=== PATIENT | female | born 1935 | race Caucasian/White ===

== ENCOUNTER 2016-11-27 17:19 | Inpatient (IN) | payer MEDICARE, OTHER ==
[2016-11-27] MEDS ORDERED: SODIUM CHLORIDE 0.9% 500 ML IV STA (17:51)
[2016-11-27] MEDS ORDERED: SODIUM CHLORIDE 0.9% 1,000 ML IV STA (17:51)
[2016-11-27] MEDS ORDERED: PIPERACILLIN-TAZOBACTAM 3.375 GM in DEXTROSE/WATER 1 50ML.BAG IVPB STA (17:51)
[2016-11-27] MEDS ORDERED: ACETAMINOPHEN TAB 500 MG TAB PO STA (17:51)
--- NOTE | 2016-11-27 18:02 | ED ---
Fever HPI - General Chief Complaint: Fever Stated Complaint: fever/poss sepsis Time Seen by Provider: 11/27/16 17:38 Source: patient, EMS Mode of arrival: EMS - History of Present Illness Initial Comments: She came from [facility], she has a chronic wound on her left proximal [facility] staff noticed that her temperature was quite high was 103 and heart rate was quite high as 120. Eyes any manner headache no neck stiffness no chest pain or shortness of breath no abdominal pain no frequency urgency dysuria. All review of system is negative except the above - Related Data Home Medications Medication Instructions Recorded Confirmed Aspirin EC [Ecotrin Low Dose] 81 mg PO DAILY 09/17/16 11/27/16 Multivitamins, Thera [Multivitamin] 1 tab PO DAILY 09/17/16 11/27/16 Acetaminophen Tab [Tylenol] 500 mg PO Q6HR PRN 09/23/16 11/27/16 Ascorbic Acid [Vitamin C] 1,000 mg PO DAILY 09/23/16 11/27/16 metFORMIN HCL [Glucophage] 1,000 mg PO AC-BID 09/23/16 11/27/16 Loperamide [Imodium] 2 mg PO TID PRN 10/22/16 11/27/16 Repaglinide [Prandin] 1 mg PO AC-TID 10/22/16 11/27/16 Sulfamethox-Tmp 800-160Mg [Bactrim 1 tab PO Q12HR 10/22/16 11/27/16 DS 800-160 mg] Amino Acids/Protein Hydrolys 30 ml PO BID 11/11/16 11/27/16 [Pro-Stat Supplement] Furosemide [Lasix] 40 mg PO MOWEFR 11/27/16 11/27/16 Glucerna Shake 1 can PO TID 11/27/16 11/27/16 Metoprolol Tartrate [Lopressor] 12.5 mg PO BID 11/27/16 11/27/16 Previous Rx's Medication Instructions Recorded Famotidine [Pepcid] 20 mg PO BID tab 09/20/16 Insulin Glargine [Lantus] 10 unit SQ HS vial 09/26/16 Linagliptin [Tradjenta] 5 mg PO DAILY tablet 09/26/16 Lisinopril [Zestril] 2.5 mg PO DAILY@1300 tab 09/26/16 Potassium Chloride 8 meq PO MOWEFR #1 tablet.er 09/26/16 Allergies Allergy/AdvReac Type Severity Reaction Status Date / Time caffeine AdvReac Unknown Verified 11/27/16 18:52 Review of Systems ROS Statement: Those systems with pertinent positive or pertinent negative responses have been documented in the HPI. ROS Other: All systems not noted in ROS Statement are negative. Past Medical History Past Medical History: Heart Failure, Diabetes Mellitus, Hypertension, Osteoarthritis (OA) Additional Past Medical History / Comment(s): Pt stating, "No" to all when asked. but does have sinus/allergies, balance problems/admitted to multiple falls, poor vision stated needs new glasses they don't work anymore. uses a magnifying glass. Hay fever, lactose intolerance. IBS. Newly diagnosed diabetes 09/24,UTI, IDC,gastroenteritis,colitis,Nurse Shayla at [facility] pa A&O X3 , able to sign for self, is a 1 person asst transfer. History of Any Multi-Drug Resistant Organisms: MRSA Date of last positivie culture/infection: 08-17-16 MDRO Source:: buttock abscess Past Surgical History: Tonsillectomy Additional Past Surgical History / Comment(s): d&c 40 years ago Past Anesthesia/Blood Transfusion Reactions: Unable to Obtain Additional Past Anesthesia/Blood Transfusion Reaction / Comment(s): past blood transfuion after 1st child born. Past Psychological History: No Psychological Hx Reported Additional Psychological History / Comment(s): pt knew the year and month but 2 times during admission pt had to be reorientated as to place. pt stated she lives at [facility],uses a cane when up Smoking Status: Former smoker Past Alcohol Use History: None Reported Past Drug Use History: None Reported - Past Family History Mother Family Medical History: No Reported History Father Additional Family Medical History / Comment(s): heart problems, triple bypass. General Exam - General Exam Comments Initial Comments: General: The patient is awake and alert, moderate distress, looks pale, weak Skin: Skin is warm and dry and no rashes or lesions are noted. Notice a chronic wound on the left buttocks Eye: Pupils are equal, round and reactive to light, extra-ocular movements are intact; there is normal conjunctiva bilaterally. Ears, nose, mouth and throat: There are moist mucous membranes and no oral lesions. Neck: The neck is supple, there is no tenderness or JVD. Cardiovascular: There is a regular rate , she is tachycardic. Respiratory: To auscultation bilateral, crackles at the the bases Gastrointestinal: Soft, non-distended, non-tender abdomen without masses or organomegaly noted. There is no rebound or guarding present. Bowel sounds are unremarkable. Back: There is no tenderness to palpation in the midline. There is no obvious deformity. Musculoskeletal: Normal ROM, no tenderness, There is no pedal edema. There is no calf tenderness or swelling. No cords were appreciated. Neurological: CN II-XII intact, Cranial nerves III through XII are intact. There are no obvious motor or sensory deficits. Coordination appears grossly intact. Speech is normal. Psychiatric: Cooperative, bit agitated, angry no suicidal or homicidal ideation. Course Vital Signs 11/27/16 11/27/16 11/27/16 17:32 18:32 19:14 Temperature 103.1 F H 99.6 F Pulse Rate 120 H 111 H 109 H Respiratory 18 18 18 Rate Blood Pressure 141/72 123/60 99/62 O2 Sat by Pulse 94 L 92 L 94 L Oximetry 11/27/16 20:58 Temperature 99.0 F Pulse Rate 105 H Respiratory 18 Rate Blood Pressure 106/67 O2 Sat by Pulse 95 Oximetry G is sinus tachycardia with a ventricular rate of 118 MS interval is 136 QRS duration is 86 4 QT/QTc is 324/454 review of this EKG does not reveal any ST elevation or ST depression Medical Decision Making - Lab Data Result diagrams: 11/27/16 18:15 11/27/16 18:15 Lab Results 11/27/16 11/27/16 11/27/16 Range/Units 18:15 18:15 18:15 WBC 22.9 H (3.8-10.6) k/uL RBC 3.55 L (3.80-5.40) m/uL Hgb 11.6 (11.4-16.0) gm/dL Hct 34.7 (34.0-46.0) % MCV 97.7 (80.0-100.0) fL MCH 32.6 (25.0-35.0) pg MCHC 33.3 (31.0-37.0) g/dL RDW 14.9 (11.5-15.5) % Plt Count 336 (150-450) k/uL Neutrophils % 90 % Lymphocytes % 5 % Monocytes % 3 % Eosinophils % 1 % Basophils % 0 % Neutrophils # 20.7 H (1.3-7.7) k/uL Lymphocytes # 1.1 (1.0-4.8) k/uL Monocytes # 0.8 (0-1.0) k/uL Eosinophils # 0.1 (0-0.7) k/uL Basophils # 0.0 (0-0.2) k/uL Sodium 132 L (137-145) mmol/L Potassium 4.1 (3.5-5.1) mmol/L Chloride 92 L (98-107) mmol/L Carbon Dioxide 29 (22-30) mmol/L Anion Gap 11 mmol/L BUN 15 (7-17) mg/dL Creatinine 0.43 L (0.52-1.04) mg/dL Est GFR (MDRD) Af Amer >60 (>60 ml/min/1.73 sqM) Est GFR (MDRD) Non-Af >60 (>60 ml/min/1.73 sqM) Glucose 229 H (74-99) mg/dL Plasma Lactic Acid Varun 1.2 (0.7-2.0) mmol/L Calcium 8.9 (8.4-10.2) mg/dL Total Bilirubin 1.0 (0.2-1.3) mg/dL AST 24 (14-36) U/L ALT 32 (9-52) U/L Alkaline Phosphatase 252 H (38-126) U/L Total Protein 6.2 L (6.3-8.2) g/dL Albumin 3.0 L (3.5-5.0) g/dL Urine Color Urine Appearance (Clear) Urine pH (5.0-8.0) Ur Specific [place] (1.001-1.035) Urine Protein (Negative) Urine Glucose (UA) (Negative) Urine Ketones (Negative) Urine Blood (Negative) Urine Nitrate (Negative) Urine Bilirubin (Negative) Urine Urobilinogen (<2.0) mg/dL Ur Leukocyte Esterase (Negative) Urine RBC (0-5) /hpf Urine WBC (0-5) /hpf Urine WBC Clumps (None) /hpf Urine Bacteria (None) /hpf Urine Mucus (None) /hpf 12/28/16 Range/Units 18:15 WBC (3.8-10.6) k/uL RBC (3.80-5.40) m/uL Hgb (11.4-16.0) gm/dL Hct (34.0-46.0) % MCV (80.0-100.0) fL MCH (25.0-35.0) pg MCHC (31.0-37.0) g/dL RDW (11.5-15.5) % Plt Count (150-450) k/uL Neutrophils % % Lymphocytes % % Monocytes % % Eosinophils % % Basophils % % Neutrophils # (1.3-7.7) k/uL Lymphocytes # (1.0-4.8) k/uL Monocytes # (0-1.0) k/uL Eosinophils # (0-0.7) k/uL Basophils # (0-0.2) k/uL Sodium (137-145) mmol/L Potassium (3.5-5.1) mmol/L Chloride (98-107) mmol/L Carbon Dioxide (22-30) mmol/L Anion Gap mmol/L BUN (7-17) mg/dL Creatinine (0.52-1.04) mg/dL Est GFR (MDRD) Af Amer (>60 ml/min/1.73 sqM) Est GFR (MDRD) Non-Af (>60 ml/min/1.73 sqM) Glucose (74-99) mg/dL Plasma Lactic Acid Varun (0.7-2.0) mmol/L Calcium (8.4-10.2) mg/dL Total Bilirubin (0.2-1.3) mg/dL AST (14-36) U/L ALT (9-52) U/L Alkaline Phosphatase (38-126) U/L Total Protein (6.3-8.2) g/dL Albumin (3.5-5.0) g/dL Urine Color Yellow Urine Appearance Turbid H (Clear) Urine pH 5.5 (5.0-8.0) Ur Specific [place] 1.017 (1.001-1.035) Urine Protein 1+ H (Negative) Urine Glucose (UA) Negative (Negative) Urine Ketones 2+ H (Negative) Urine Blood Trace H (Negative) Urine Nitrate Positive H (Negative) Urine Bilirubin Negative (Negative) Urine Urobilinogen 3.0 (<2.0) mg/dL Ur Leukocyte Esterase Large H (Negative) Urine RBC 51 H (0-5) /hpf Urine WBC >182 H (0-5) /hpf Urine WBC Clumps Many H (None) /hpf Urine Bacteria Many H (None) /hpf Urine Mucus Many H (None) /hpf Critical Care Time Total Critical Care Time: 35 Critical Care Time: She was quite sick when she came in her temperature was 103 and heart rate was 120 blood pressure was 141/88 she was quite agitated she didn't want us to do any IV was though it took us quite some time to convince her that she needs IV fluids IV antibiotics and close monitoring and she was and then some fluid resuscitation and then now is Zosyn IV was giving him some fluids finally her heart rate settled down and a temperature got better she be admitted to hospitalist services under Dr. Villagomez and Dr. Quiñonez infectious disease doctor. Consult Disposition Clinical Impression: Fever, Sepsis, Tachycardia, Cystitis Disposition: ADMITTED IP TO THIS HOSP Condition: Fair
[2016-11-27 18:37] LABS: Appearance,Urine Turbid (Clear); Bacteria,Urine Many /hpf; Bilirubin,Urine Negative (Negative); Glucose,Urine (UA) Negative (Negative); Ketones,Urine 2+ (Negative); Leukocyte Esterase,Urine Large (Negative); Mucus,Urine Many /hpf; Nitrite,Urine Positive (Negative); PH, Urine 5.5 (5.0-8.0); Particle Count 369587; Protein,Urine 1+ (Negative); RBC,Urine 51 /hpf (0-5); Specific Gravity,Urine 1.017 (1.001-1.035); UA Billing (MACRO vs. MICRO) MICRO; WBC,Urine >182 /hpf (0-5)
[2016-11-27 18:41] LABS: ALT 32 U/L (9-52); AST 24 U/L (14-36); Alkaline Phosphatase 252 U/L (38-126); Anion Gap 11 mmol/L; Basophils % (A) 0 %; Blood Urea Nitrogen 15 mg/dL (7-17); CH 33.7; CHCM 34.6; Calcium 8.9 mg/dL (8.4-10.2); Carbon Dioxide 29 mmol/L (22-30); Chloride 92 mmol/L (98-107); Eosinophils # (A) 0.1 k/uL (0-0.7); Eosinophils % (A) 1 %; Glucose 229 mg/dL (74-99); HCT 34.7 % (34.0-46.0); HDW 2.45; HGB 11.6 gm/dL (11.4-16.0); Luc # (Auto) 0.16; Luc % (Auto) 1; Lymphocytes # (A) 1.1 k/uL (1.0-4.8); Lymphocytes % (A) 5 %; MCH 32.6 pg (25.0-35.0); MCHC 33.3 g/dL (31.0-37.0); MCV 97.7 fL (80.0-100.0); Mean Platelet Volume 7.6; Monocytes # (A) 0.8 k/uL (0-1.0); Monocytes % (A) 3 %; Neutrophils # (A) 20.7 k/uL (1.3-7.7); Neutrophils % (A) 90 %; Non-African American GFR(MDRD) >60 (>60 ml/min/1.73 sqM); Potassium 4.1 mmol/L (3.5-5.1); RBC 3.55 m/uL (3.80-5.40); RDW 14.9 % (11.5-15.5); Sodium 132 mmol/L (137-145); Total Protein 6.2 g/dL (6.3-8.2); WBC 22.9 k/uL (3.8-10.6); WBC (Perox) 24.43
--- NOTE | 2016-11-27 19:05 | XR ---
EXAMINATION TYPE: XR Hip Bilateral and AP pelvis DATE OF EXAM: 11/27/2016 6:52 PM COMPARISON: NONE HISTORY: Pain TECHNIQUE: 5 views FINDINGS: The pelvic ring is intact. The proximal femurs and hip joints are intact. Sacroiliac joints are normal. There is osteopenia.. IMPRESSION: Negative pelvis and bilateral hip exam. No fracture seen. Osteopenia.
--- NOTE | 2016-11-27 19:06 | XR ---
EXAMINATION TYPE: XR chest 2V DATE OF EXAM: 11/27/2016 6:53 PM COMPARISON: 09/26/2016 HISTORY: Fever TECHNIQUE: Frontal and lateral views of the chest are obtained. FINDINGS: There is no heart failure nor confluent pneumonic infiltrate. Thoracic aorta is atheroscle rotic and tortuous. There is no pleural effusion. There are chest leads. Bony thorax appears intact. IMPRESSION: No active cardiopulmonary disease. Cardiomegaly. There is clearing of the pleural fluid and probable congestive heart failure compared to last exam.
[2016-11-27] MEDS ORDERED: ONDANSETRON 4 MG/2 ML VIAL IVP PRN (22:47)
[2016-11-27] MEDS ORDERED: NALOXONE 0.4 MG/ML 1 ML VIAL IV PRN (22:47)
[2016-11-27 23:57] VITALS: BMI 21.2
[2016-11-28] MEDS: PIPERACILLIN-TAZOBACTAM 3.375 GM in DEXTROSE/WATER 1 50ML.BAG IVPB SCH ×4 (01:49→22:58)
[2016-11-28] MEDS: FUROSEMIDE 40 MG TAB PO SCH (02:19)
[2016-11-28 07:05] LABS: Glucose,Whole Blood 167 mg/dL (75-99)
[2016-11-28 07:29] LABS: Basophils % (A) 0 %; CH 33.5; CHCM 33.8; Eosinophils % (A) 0 %; HCT 31.5 % (34.0-46.0); HDW 2.46; HGB 10.5 gm/dL (11.4-16.0); Luc # (Auto) 0.29; Luc % (Auto) 2; Lymphocytes # (A) 1.4 k/uL (1.0-4.8); Lymphocytes % (A) 8 %; MCH 33.3 pg (25.0-35.0); MCHC 33.5 g/dL (31.0-37.0); MCV 99.4 fL (80.0-100.0); Macrocytosis Slight; Mean Platelet Volume 7.1; Monocytes # (A) 0.8 k/uL (0-1.0); Monocytes % (A) 4 %; Neutrophils % (A) 86 %; RBC 3.17 m/uL (3.80-5.40); WBC 18.6 k/uL (3.8-10.6); WBC (Perox) 19.62
[2016-11-28 07:42] LABS: ALT 34 U/L (9-52); AST 18 U/L (14-36); Alkaline Phosphatase 209 U/L (38-126); Anion Gap 11 mmol/L; Blood Urea Nitrogen 13 mg/dL (7-17); Calcium 8.5 mg/dL (8.4-10.2); Carbon Dioxide 30 mmol/L (22-30); Chloride 95 mmol/L (98-107); Glucose 178 mg/dL (74-99); Non-African American GFR(MDRD) >60 (>60 ml/min/1.73 sqM); Potassium 3.6 mmol/L (3.5-5.1); Sodium 136 mmol/L (137-145); Total Bilirubin 0.8 mg/dL (0.2-1.3); Total Protein 5.6 g/dL (6.3-8.2)
[2016-11-28] MEDS: metFORMIN 500 MG TAB PO SCH ×2 (07:43→17:26)
[2016-11-28] MEDS: REPAGLINIDE 1 MG TAB PO SCH ×3 (07:43→17:26)
[2016-11-28] MEDS: ASPIRIN 81 MG CHEW PO SCH (07:44)
[2016-11-28] MEDS: LINAGLIPTIN 5 MG TABLET PO SCH (07:44)
[2016-11-28] MEDS: FAMOTIDINE 20 MG TAB PO SCH ×2 (07:44→22:03)
[2016-11-28] MEDS: ASCORBIC ACID 500 MG TAB PO SCH (07:44)
[2016-11-28] MEDS: MULTIVITAMINS, THERA 1 EACH TAB PO SCH (07:45)
[2016-11-28] MEDS: METOPROLOL TARTRATE 12.5 MG TAB PO SCH ×2 (07:45→22:03)
[2016-11-28] MEDS ORDERED: SULFAMETHOX-TMP 800-160MG 1 EACH TAB PO SCH (09:00)
[2016-11-28] MEDS ORDERED: NON-FORMULARY DRUG (Glucerna Shake 1 CAN) PO SCH (09:00)
[2016-11-28] MEDS ORDERED: NON-FORMULARY DRUG (Amino Acids/Protein Hydrolys [Pro-Stat Supplement] 30 ML) PO SCH (09:00)
[2016-11-28] MEDS: ACETAMINOPHEN TAB 325 MG TAB PO PRN ×2 (09:13→16:08)
[2016-11-28 11:55] LABS: Glucose,Whole Blood 153 mg/dL (75-99)
[2016-11-28] MEDS: INSULIN LISPRO (humaLOG) 300 UNIT/3 ML VIAL SQ SCH ×4 (12:14→21:57)
[2016-11-28] MEDS: LISINOPRIL 2.5 MG TAB PO SCH (12:15)
[2016-11-28] MEDS ORDERED: IV VANCOMYCIN PER PHARMACY 1 EACH MISC MISCELLANE PRN (12:27)
[2016-11-28] MEDS ORDERED: VANCOMYCIN 1,000 MG in SODIUM CHLORIDE 0.9% 250 ML IVPB ONE (13:30)
[2016-11-28] MEDS: LOPERAMIDE 2 MG CAP PO PRN (16:00)
[2016-11-28 17:17] LABS: Glucose,Whole Blood 189 mg/dL (75-99)
[2016-11-28 20:24] LABS: Glucose,Whole Blood 122 mg/dL (75-99)
[2016-11-28] MEDS: INSULIN GLARGINE 100 UNIT/ML 10 ML VIAL SQ SCH (22:06)
[2016-11-29] MEDS: VANCOMYCIN 1,000 MG in SODIUM CHLORIDE 0.9% 250 ML IVPB SCH ×2 (02:53→15:53)
--- NOTE | 2016-11-29 06:25 | HP ---
DATE OF ADMISSION: The patient is a long term resident and patient has a chronic wound. The patient has congestive heart failure, ejection fraction of around 40% to 45%. Came in because of high-grade fevers and heart rate at 120. Chest x-ray did not show any pneumonic process or any fluid n the lungs. The patient during her last hospitalization was discharged on Bactrim. The patient has Proteus mirabilis and Enterococcus in the wound, but patient has ( ). The source of infection is unclear at this point of time. Patient has a chronic Orellana catheter. Urine appear to be ( ). The source of infections being urine versus wound. The patient has a deep wound for which Dr. Quiñonez evaluated at that time. We consulted Dr. Quiñonez. I will go ahead and discontinue Bactrim and patient will be started on IV vancomycin. Patient denied any cough, runny nose. Patient was febrile with temperature going up to 103. REVIEW OF SYSTEMS: GENERAL: As described in HPI. HEENT: No recent visual problems or hearing problems. Denied any sore throat. CARDIOVASCULAR: No chest pain, orthopnea, PND, no palpitations, no syncope. PULMONARY: No shortness of breath, no cough, no hemoptysis. GASTROINTESTINAL: No diarrhea, no nausea, no vomiting, no abdominal pain. Normoactive bowel sounds. NEUROLOGICAL: No headaches, no weakness, no numbness. HEMATOLOGICAL: Denies any bleeding or petechiae. GENITOURINARY: Denies any burning micturition, frequency, or urgency. MUSCULOSKELETAL/RHEUMATOLOGICAL: Denies any joint pain, swelling, or any muscle pain. ENDOCRINE: Denies any polyuria or polydipsia. The rest of the 14 point review of systems is negative. Home medications include: 1. Aspirin. 2. Multivitamin. 3. Acetaminophen. 4. Ascorbic acid. 5. Metformin. 6. Loperamide. 7. ( ). 8. Bactrim. 9. Lasix 40 mg oral daily. 10. Glucerna. 11. Metoprolol. Patient during her last hospitalization was treated for ( ) exacerbation ( ) gradually ( ) lisinopril and potassium chloride. Allergies are to CAFFEINE. PAST MEDICAL HISTORY: Significant for congestive heart failure, chronic systolic dysfunction ejection fraction of around 40% to 45%, type 2 diabetes mellitus, hypertension, osteoarthritis, buttock abscess and SOCIAL HISTORY: Former smoker. Denied any alcohol abuse or any drug abuse. FAMILY HISTORY: Father had heart problems and triple bypass surgery. PHYSICAL EXAMINATION: VITAL SIGNS: Temperature 98.6, pulse of 90, respiratory rate of 16, blood pressure 97/62, saturating at 93% on 2 L of O2 by nasal cannula, 24 hour T-max is 103.1. Patient's tachycardia did improve at this point of time. GENERAL: Thin built, cachetic, malnourished, probably moderate malnourishment in patient. HEENT: Pupils are round and equally reacting to light. EOMI. No scleral icterus. No conjunctival pallor. Normocephalic, atraumatic. No pharyngeal erythema. No thyromegaly. CARDIOVASCULAR: S1 and S2 present. No murmurs, rubs, or gallops. PULMONARY: Chest is clear to auscultation, no wheezing or crackles. ABDOMEN: Soft, nontender, nondistended, normoactive bowel sounds. No palpable organomegaly. MUSCULOSKELETAL: No joint swelling or deformity. EXTREMITIES: No cyanosis, clubbing, or pedal edema. NEUROLOGICAL: Gross neurological examination did not reveal any focal deficits. SKIN: No rashes. DERMATOLOGIC: Patient has a decubitus ulcer, which is pretty deep and has a wound VAC, because of which I am not able to open it up and look at the wound. Wound cultures will be obtained at this point of time. Patient has a chronic Orellana catheter, which will be replaced. LABORATORY DATA: CBC, CMP are abnormal for elevated WBC count of 22,900 which has come down to 18,600. Sodium was 132, has come up to 136 after IV fluids, but I will discontinue the IV fluids with concerns of CHF exacerbation. Alkaline phosphatase is 209, which is a nonspecific elevation. UA definitely looks bad with positive nitrites, large leukocyte esterase, greater than 182 WBC. Chest x-ray and pelvic x-ray were reviewed, except for osteopenia no other acute problems in the pelvic or chest x-ray. ASSESSMENT AND PLAN: 1. Severe sepsis secondary to either deep wound or urinary tract infection, which is again secondary to probably Orellana catheter-related. Patient is on broad-spectrum antibiotic as mentioned above. IV fluids will be discontinued because of above mentioned reasons of congestive heart failure, 2. Congestive heart failure, not in acute exacerbation. The patient is actually hypovolemic, received one night of IV fluids after which this will be discontinued. 3. Diabetes mellitus. Patient will be on sliding scale insulin. Hold up on oral hypoglycemic agents. 4. Moderate malnourishment. 5. Poor functionality. 6. Irritable bowel syndrome. 7. Osteoarthritis. Patient's primary care physician is Dr. Darrel Gaytan.
[2016-11-29 07:24] LABS: Glucose,Whole Blood 136 mg/dL (75-99)
[2016-11-29] MEDS: LOPERAMIDE 2 MG CAP PO PRN ×2 (08:34→20:16)
[2016-11-29] MEDS: PIPERACILLIN-TAZOBACTAM 3.375 GM in DEXTROSE/WATER 1 50ML.BAG IVPB SCH ×2 (08:34→19:23)
[2016-11-29] MEDS: ACETAMINOPHEN TAB 325 MG TAB PO PRN ×2 (08:34→20:08)
[2016-11-29] MEDS: FAMOTIDINE 20 MG TAB PO SCH ×2 (08:35→20:08)
[2016-11-29] MEDS: METOPROLOL TARTRATE 12.5 MG TAB PO SCH ×2 (08:35→20:08)
[2016-11-29] MEDS: REPAGLINIDE 1 MG TAB PO SCH ×3 (08:35→17:48)
[2016-11-29] MEDS: metFORMIN 500 MG TAB PO SCH ×2 (08:35→17:48)
[2016-11-29] MEDS: ASPIRIN 81 MG CHEW PO SCH (08:35)
[2016-11-29] MEDS: FUROSEMIDE 40 MG TAB PO SCH (08:35)
[2016-11-29] MEDS: ASCORBIC ACID 500 MG TAB PO SCH (08:35)
[2016-11-29] MEDS: MULTIVITAMINS, THERA 1 EACH TAB PO SCH (08:35)
[2016-11-29] MEDS: LINAGLIPTIN 5 MG TABLET PO SCH (08:35)
[2016-11-29] MEDS: INSULIN LISPRO (humaLOG) 300 UNIT/3 ML VIAL SQ SCH ×4 (08:35→20:11)
--- NOTE | 2016-11-29 10:12 | CONS ---
DATE OF CONSULTATION: 11/28/2016 REASON FOR CONSULTATION: sacral wound. HISTORY OF PRESENT ILLNESS: The patient is an 81-year-old female who is a [facility] resident. 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 Currently the patient did have cultures obtained from the same wound which did show Enterococcus faecalis and Bacteroides bulgaris that was on 10/23/2016. Patient was advised a PICC line and IV antibiotic therapy. However, apparently, the patient has refused the same. The patient is currently being taken care of by the intermediate with a wound VAC. The patient has been sent to [facility] with a chief complaint of fever of 101 degrees Fahrenheit and tachycardia. Patient subsequently has been elevated by the ER physician. The patient did have a chest x-ray, which reported to be no acute cardiopulmonary disease. The patient also had x-rays of the pelvis and hip area, which was negative. Patient did have a positive UA and did have an elevated white count 22.9. The patient also has chronic indwelling Orellana catheter and it is unclear when the last time it was changed. The patient was started on broad-spectrum antibiotic and I was asked to see the patient for this condition regarding antibiotic therapy. Patient knows she is in the hospital. The patient denies having any headache. The patient denies having any chest pain or shortness of breath. However, no significant abdominal pain or any diarrhea. REVIEW OF SYSTEMS: Positive for weakness. Fever as noted above. EYES: No complaint. ENDOCRINE: No complaint. RESPIRATORY: No complaint. CARDIOVASCULAR: No complaint. GENITOURINARY: As per history of present illness. GASTROINTESTINAL: As per HPI. MUSCULOSKELETAL: No complaint. INTEGUMENTARY: No complaint. PSYCHOLOGIC: No complaint. ENDOCRINE: No complaint. NEUROLOGICAL: No complaint. PAST MEDICAL HISTORY: Significant for diabetes mellitus, hypertension, osteoarthritis, heart failure, history of MRSA buttock abscess. Past surgical history: Surgical debridement of the sacral wound and tonsillectomy. SOCIAL HISTORY: She is currently resident of intermediate. Remote history of smoking. No drinking or drug use. FAMILY HISTORY: Father with history of coronary artery disease. ALLERGIES: CAFFEINE. MEDICATIONS: Currently the patient is on: 1. Tylenol. 2. Aspirin. 3. Pepcid. 4. Lasix. 5. Lantus. 6. Humalog. 7. Zestril. 8. Imodium. 9. Glucophage. 10. Lopressor. 11. Theragran. 12. Narcan. 13. Zofran. 14. Piptazobactam. 15. K-Dur. 16. Vancomycin. On examination, blood pressure is 125/71 with a pulse of 98, temperature 98.4. She is 95% on room air. She did have T-max 103.1. General description is an elderly female, lying in bed in no distress. No tachypnea or accessory muscle of respiration use. HEENT examination shows pallor. There is no scleral icterus. Oral mucosal membrane is dry. NECK: Trachea central. There is no thyromegaly. LUNGS: Unlabored breathing. Clear to auscultation anteriorly. No wheeze or crackle. HEART: S1, S2 regular rate and rhythm. ABDOMEN: Soft. No tenderness. No guarding or rigidity. EXTREMITIES: No edema of the feet. Examination of the sacral area, the patient did have Stage IV pressure ulcer but no significant surrounding erythema or any foul smelling drainage was noticed. GENITOURINARY: The patient did have a Orellana catheter with some dark urine. No hematuria. NEUROLOGICAL: Patient awake, alert, oriented x3. Mood and affect normal. LABS: Hemoglobin is 10.5, white count of 18.6 with a BUN of 13, creatinine 0.43. Liver enzymes normal. Urine has been positive with large leukocyte esterase. Cultures are currently pending. Chest x-ray was negative. DIAGNOSTIC IMPRESSION AND PLAN: 1. Patient with sepsis in a patient who presented to hospital with fever, did have an elevated white count meeting criteria for systemic inflammatory response syndrome. Source is likely urinary, catheter associated urinary tract infection. 2. Patient has stage IV pressure ulcer with outpatient culture has been positive for enterococcus and Bacteroides species. However, clinically no significant inflammation was noticed for underlying wound infection could not be entirely excluded. PLAN: 1. Will change her Orellana catheter and obtain urine culture from the new Orellana. 2. The patient to continue vancomycin. Pharmacy to dose along with Zosyn. 3. Wound VAC to the sacral wound. 4. Will follow up on the clinical condition and cultures to further adjust the medication if needed. Thank you for this consultation. Will follow this patient along with you. PATTI
[2016-11-29 11:24] LABS: Glucose,Whole Blood 211 mg/dL (75-99)
[2016-11-29] MEDS: LISINOPRIL 2.5 MG TAB PO SCH (12:49)
[2016-11-29 16:16] LABS: Glucose,Whole Blood 92 mg/dL (75-99)
[2016-11-29] MEDS: POTASSIUM CHLORIDE ER 10 MEQ TAB.ER.PRT PO SCH (20:08)
[2016-11-29] MEDS: INSULIN GLARGINE 100 UNIT/ML 10 ML VIAL SQ SCH (20:10)
[2016-11-29 20:13] LABS: Glucose,Whole Blood 170 mg/dL (75-99)
[2016-11-30] MEDS: PIPERACILLIN-TAZOBACTAM 3.375 GM in DEXTROSE/WATER 1 50ML.BAG IVPB SCH ×3 (01:46→16:41)
[2016-11-30 07:30] LABS: Glucose,Whole Blood 98 mg/dL (75-99)
[2016-11-30] MEDS: REPAGLINIDE 1 MG TAB PO SCH ×3 (07:30→17:19)
[2016-11-30] MEDS: ASPIRIN 81 MG CHEW PO SCH (07:50)
[2016-11-30] MEDS: FAMOTIDINE 20 MG TAB PO SCH ×2 (07:50→20:43)
[2016-11-30] MEDS: ASCORBIC ACID 500 MG TAB PO SCH (07:50)
[2016-11-30] MEDS: MULTIVITAMINS, THERA 1 EACH TAB PO SCH (07:50)
[2016-11-30] MEDS: LINAGLIPTIN 5 MG TABLET PO SCH (07:50)
[2016-11-30] MEDS: metFORMIN 500 MG TAB PO SCH ×2 (07:50→17:19)
[2016-11-30] MEDS: METOPROLOL TARTRATE 12.5 MG TAB PO SCH ×2 (07:50→20:43)
[2016-11-30] MEDS: INSULIN LISPRO (humaLOG) 300 UNIT/3 ML VIAL SQ SCH ×4 (07:51→20:43)
[2016-11-30] MEDS ORDERED: VANCOMYCIN TROUGH DUE 1 EACH MISC MISCELLANE ONE (08:00)
[2016-11-30] MEDS: ACETAMINOPHEN TAB 325 MG TAB PO PRN ×2 (08:04→17:19)
--- NOTE | 2016-11-30 10:28 | PN ---
DATE OF SERVICE: 11/29/2016 Reason for follow-up: 1. Catheter associated UTI infection. 2. Infected sacral pressure ulcer. INTERVAL HISTORY: The patient is afebrile. She is relatively more awake, alert, breathing comfortably. Denies having any chest pain, shortness of breath or cough. No abdominal pain. Worsening pain in the back area. On examination, blood pressure 119/67, pulse of 88, temperature 97.6. She is 95% on room air. General description is an elderly female, lying in bed in no distress. RESPIRATORY SYSTEM: Unlabored breathing. Clear to auscultation anteriorly. HEART: S1, S2. Regular rate and rhythm. ABDOMEN: Soft, no tenderness. LABS: No new labs have been obtained today. Cultures from the buttock wound is possible methicillin-resistant Staphylococcus aureus. Urine cultures are currently pending. DIAGNOSTIC IMPRESSION AND PLAN: Palpation admitted to hospital with sepsis. Source likely catheter associated UTI infection with infected sacral pressure ulcer. Culture showing Methicillin-resistant Staph aureus. Urine cultures currently pending. The patient will continue on Vanco and Zosyn while waiting for the culture to finalize. Continue wound VAC to the sacral area. The patient is known to Dr. Quiñonez who will follow this patient as of tomorrow. Continue supportive care.
--- NOTE | 2016-11-30 11:37 | PN ---
DATE OF SERVICE: 11/29/2016 This 81-year-old woman was admitted to the hospital with severe sepsis associated with urinary tract infection is being closely monitored at this time. The patient is on IV antibiotics. The patient also had a history of CHF. The cultures are showing presumptive MRSA at this time. There is no history of fever, rigors or chills. Past medical history reviewed. REVIEW OF SYSTEMS: CARDIOVASCULAR: No angina or palpitations. RESPIRATORY: As mentioned earlier. GASTROINTESTINAL: As mentioned earlier. GENITOURINARY: No dysuria. CENTRAL NERVOUS SYSTEM: No focal deficits. Current medications are reviewed and include: 1. Tylenol 650 q6h p.r.n. 2. Vitamin C 1000 mg daily. 3. Aspirin. 4. Pepcid. 5. Lasix. 6. Lantus 10 units. 8. Imodium. 9. Glucophage. 10. Lopressor. 11. Vancomycin. 12. Narcan. 13. Zosyn. PHYSICAL EXAMINATION: The patient is alert and oriented times three. Pulse 60, blood pressure 147/83, respiratory rate 16, temperature 98.3, pulse ox 94% on nasal cannula. HEENT: Conjunctivae normal. NECK: No jugular venous distention. CARDIOVASCULAR: S1, S2 muffled. RESPIRATORY: Breath sounds diminished at the bases. No rhonchi. No crackles. ABDOMEN: Soft, nontender. LEGS: No edema. No swelling. CENTRAL NERVOUS SYSTEM: No focal deficits. Labs at this time Accu-Cheks 117, WBC 18.5, hemoglobin 10.2. Sodium 136. ASSESSMENT: 1. Urinary tract infection with severe sepsis secondary to methicillin-resistant Staphylococcus aureus. 2. History of congestive heart failure, not in acute exacerbation. 3. Increased WBC secondary to sepsis. 4. Anemia, normocytic, anemia of chronic disease. 5. Hyponatremia. 6. Diabetes mellitus type 2. 7. Hyponatremia. 8. Hypoalbuminemia with mild to moderate protein calorie malnutrition. 9. Increased alkaline phosphatase. 10. History of diabetes mellitus type 2. 11. History of irritable bowel syndrome. 12. History of degenerative joint disease. 13. History of congestive heart failure, ejection fraction unknown. 14. History of hypertension. 15. History of degenerative joint disease. 16. History of tonsillectomy. 17. History of colitis. RECOMMENDATIONS AND DISCUSSION: In this 81-year-old woman who presented with multiple medical issues, continue current medications, continue symptomatic treatment , continue with antibiotics, PT/OT evaluation, possible ECF rehab. Guarded prognosis because of multiple complex medical issues. Further recommendations to follow. Discussed with staff. Further recommendations to follow. See orders for details. MTDD
[2016-11-30 11:48] LABS: Glucose,Whole Blood 131 mg/dL (75-99)
[2016-11-30] MEDS: LISINOPRIL 2.5 MG TAB PO SCH (11:56)
[2016-11-30] MEDS: VANCOMYCIN 1,000 MG in SODIUM CHLORIDE 0.9% 250 ML IVPB SCH (11:56)
[2016-11-30 12:18] LABS: Anion Gap 14 mmol/L; Blood Urea Nitrogen 11 mg/dL (7-17); Calcium 8.6 mg/dL (8.4-10.2); Carbon Dioxide 26 mmol/L (22-30); Chloride 101 mmol/L (98-107); Glucose 127 mg/dL (74-99); Non-African American GFR(MDRD) >60 (>60 ml/min/1.73 sqM); Potassium 3.9 mmol/L (3.5-5.1); Sodium 141 mmol/L (137-145)
[2016-11-30 17:17] LABS: Glucose,Whole Blood 121 mg/dL (75-99)
--- NOTE | 2016-11-30 18:15 | P.PN ---
Subjective Principal diagnosis: Coccyx pressure ulcer stage IV 81-year-old woman who is known to the provider from her visit at the wound healing Center where she presented for the long-standing history of ulceration to her coccyx. She is quite leery about any further interventions. She was transferred from the extended care facility because of her high-grade fever of 103. 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 He constantly plan was for PICC line placement and intravenous antibiotic therapy. Patient will refuse any further interventions and she was discharged in the wound healing Center. A presents to Hospital ill with high-grade fever and sepsis. Because of this the infectious diseases consultation was requested. Objective - Vital Signs Vital signs: Vital Signs Temp 98.5 F 11/30/16 13:48 Pulse 86 11/30/16 13:48 Resp 16 11/30/16 13:48 BP 129/71 11/30/16 13:48 Pulse Ox 99 11/30/16 13:48 Intake & Output 11/29/16 11/30/16 11/30/16 18:59 06:59 18:59 Intake Total 100 400 Output Total 300 800 Balance -300 -700 400 Intake: Intake, IV Titration 100 Amount Piperacillin-Tazobactam 3 100 .375 gm In Dextrose/Water 1 50ml.bag @ 12.5 mls/hr IVPB Q8HR [facility] Rx#: [id number] Oral 400 Output: Urine 300 800 Uretheral ([place]) 800 Other: Voiding Method Indwelling Catheter Indwelling Catheter Incontinent Indwelling Catheter # Bowel Movements 1 - Exam Elderly 81-year-old woman who is anxious with chronic ulceration. HEENT: Anicteric conjunctiva are pink and moist nasal mucosa grossly intact without significant lesions, there is no thrush. Edentulous Neck: The neck is supple without significant lymphadenopathy or thyromegaly. Lungs: Symmetrical air entry with few scattered crackles Heart: Regular without audible S1 and S2 without S4 no murmur click or rub Abdomen: Positive bowel sounds soft and nontender without palpable masses or organomegaly. There was no guarding or rebound. Extremities: The upper extremities have excellent pulses they are symmetric, no significant petechiae or telangiectasia. No splinter hemorrhages were noted. The lower extremities are free from significant edema. The peripheral pulses were 2+ and symmetric. Neuro: Anxious somewhat uncooperative.. Coccyx shows evidence of the stage IV ulceration is measuring at 5.3 x 6 x 5 cm. - Labs CBC & Chem 7: 11/28/16 07:01 11/30/16 08:40 Labs: Abnormal Lab Results - Last 24 Hours (Table) 11/29/16 11/30/16 11/30/16 Range/Units 20:11 08:40 11:39 Creatinine 0.42 L (0.52-1.04) mg/dL Glucose 127 H (74-99) mg/dL POC Glucose (mg/dL) 170 H 131 H (75-99) mg/dL 11/30/16 Range/Units 17:13 Creatinine (0.52-1.04) mg/dL Glucose (74-99) mg/dL POC Glucose (mg/dL) 121 H (75-99) mg/dL Microbiology - Last 24 Hours (Table) 11/28/16 17:20 Gram Stain - Preliminary Buttock Wound Culture - Preliminary Presumptive MRSA Laboratory Results WBC 18.6 k/uL (3.8-10.6) H 11/28/16 07:01 RBC 3.17 m/uL (3.80-5.40) L 11/28/16 07:01 Hgb 10.5 gm/dL (11.4-16.0) L 11/28/16 07:01 Hct 31.5 % (34.0-46.0) L 11/28/16 07:01 MCV 99.4 fL (80.0-100.0) 11/28/16 07:01 MCH 33.3 pg (25.0-35.0) 11/28/16 07:01 MCHC 33.5 g/dL (31.0-37.0) 11/28/16 07:01 RDW 15.0 % (11.5-15.5) 11/28/16 07:01 Plt Count 309 k/uL (150-450) 11/28/16 07:01 Neutrophils % 86 % 11/28/16 07:01 Lymphocytes % 8 % 11/28/16 07:01 Monocytes % 4 % 11/28/16 07:01 Eosinophils % 0 % 11/28/16 07:01 Basophils % 0 % 11/28/16 07:01 Neutrophils # 16.0 k/uL (1.3-7.7) H 11/28/16 07:01 Lymphocytes # 1.4 k/uL (1.0-4.8) 11/28/16 07:01 Monocytes # 0.8 k/uL (0-1.0) 11/28/16 07:01 Eosinophils # 0.0 k/uL (0-0.7) 11/28/16 07:01 Basophils # 0.0 k/uL (0-0.2) 11/28/16 07:01 Macrocytosis Slight 11/28/16 07:01 Sodium 141 mmol/L (137-145) 11/30/16 08:40 Potassium 3.9 mmol/L (3.5-5.1) 11/30/16 08:40 Chloride 101 mmol/L (98-107) 11/30/16 08:40 Carbon Dioxide 26 mmol/L (22-30) 11/30/16 08:40 Anion Gap 14 mmol/L 11/30/16 08:40 BUN 11 mg/dL (7-17) 11/30/16 08:40 Creatinine 0.42 mg/dL (0.52-1.04) L 11/30/16 08:40 Est GFR (MDRD) Af Amer >60 (>60 ml/min/1.73 sqM) 11/30/16 08:40 Est GFR (MDRD) Non-Af >60 (>60 ml/min/1.73 sqM) 11/30/16 08:40 Glucose 127 mg/dL (74-99) H 11/30/16 08:40 POC Glucose (mg/dL) 121 mg/dL (75-99) H 11/30/16 17:13 POC Glu Route Manager ID 11/30/16 17:[address] Glu mg/dL 97 mg/dL 11/28/16 07:01 Hemoglobin A1c 5.0 % (4.2-6.1) 11/28/16 07:01 Plasma Lactic Acid Varun 1.2 mmol/L (0.7-2.0) 11/27/16 18:15 Calcium 8.6 mg/dL (8.4-10.2) 11/30/16 08:40 Total Bilirubin 0.8 mg/dL (0.2-1.3) 11/28/16 07:01 AST 18 U/L (14-36) 11/28/16 07:01 ALT 34 U/L (9-52) 11/28/16 07:01 Alkaline Phosphatase 209 U/L (38-126) H 11/28/16 07:01 Total Protein 5.6 g/dL (6.3-8.2) L 11/28/16 07:01 Albumin 2.6 g/dL (3.5-5.0) L 11/28/16 07:01 Urine Color Yellow 11/27/16 18:15 Urine Appearance Turbid (Clear) H 11/27/16 18:15 Urine pH 5.5 (5.0-8.0) 11/27/16 18:15 Ur Specific [place] 1.017 (1.001-1.035) 11/27/16 18:15 Urine Protein 1+ (Negative) H 11/27/16 18:15 Urine Glucose (UA) Negative (Negative) 11/27/16 18:15 Urine Ketones 2+ (Negative) H 11/27/16 18:15 Urine Blood Trace (Negative) H 11/27/16 18:15 Urine Nitrate Positive (Negative) H 11/27/16 18:15 Urine Bilirubin Negative (Negative) 11/27/16 18:15 Urine Urobilinogen 3.0 mg/dL (<2.0) 11/27/16 18:15 Ur Leukocyte Esterase Large (Negative) H 11/27/16 18:15 Urine RBC 51 /hpf (0-5) H 11/27/16 18:15 Urine WBC >182 /hpf (0-5) H 11/27/16 18:15 Urine WBC Clumps Many /hpf (None) H 11/27/16 18:15 Urine Bacteria Many /hpf (None) H 11/27/16 18:15 Urine Mucus Many /hpf (None) H 11/27/16 18:15 Vancomycin Trough 9.8 ug/mL 11/30/16 08:40 Microbiology 11/28/16 17:20 Buttock Gram Stain - Preliminary 11/28/16 17:20 Buttock Wound Culture - Preliminary Presumptive MRSA 11/27/16 18:15 Blood Blood Culture - Preliminary No Growth after 48 hours 11/28/16 17:20 Buttock Anaerobic Culture - Preliminary Assessment and Plan (1) Sepsis Narrative/Plan: 81-year-old female presented to Hospital from extended care facility with evidence of sepsis. 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 Cultures revealed evidence of enterococcus as well as gram-negative anaerobic bacteria and there was plans for PICC line placement and intravenous antibiotic therapy. The patient however declined further treatment and was discharged from the wound center due to her lack of medical compliance. Now presents to Hospital ill and likely has evidence of sepsis or urinary system as well as possibly worsening of infection to the coccyx is under by the new bacteria of MRSA be nicely from that site. Consequently for antibiotic therapy Unasyn will be utilized. Vancomycin will be utilized for the newly isolated MRSA. Blood culture should be obtained. Urine culture if not done she also be obtained. Urinalysis was markedly abnormal. Her leukocytosis is starting to improve. In her high-grade fever is also improving. She continues to have a very difficult personality. Status: Acute (2) Pressure ulcer of coccygeal region, stage 4 Status: Acute (3) Urinary tract infection Status: Acute (4) Leukocytosis Status: Acute
[2016-11-30 20:36] LABS: Glucose,Whole Blood 96 mg/dL (75-99)
[2016-11-30] MEDS: AMPICILLIN-SULBACTAM 3 GM in SODIUM CHLORIDE 0.9% 100 ML IVPB SCH (20:45)
[2016-11-30] MEDS: INSULIN GLARGINE 100 UNIT/ML 10 ML VIAL SQ SCH (20:48)
[2016-12-01] MEDS: AMPICILLIN-SULBACTAM 3 GM in SODIUM CHLORIDE 0.9% 100 ML IVPB SCH ×5 (00:21→23:31)
[2016-12-01] MEDS: VANCOMYCIN 1,250 MG in SODIUM CHLORIDE 0.9% 250 ML IVPB SCH ×2 (03:19→20:16)
[2016-12-01 07:42] LABS: Anion Gap 9 mmol/L; Blood Urea Nitrogen 9 mg/dL (7-17); Carbon Dioxide 29 mmol/L (22-30); Chloride 101 mmol/L (98-107); Glucose 76 mg/dL (74-99); Non-African American GFR(MDRD) >60 (>60 ml/min/1.73 sqM); Potassium 3.5 mmol/L (3.5-5.1); Sodium 139 mmol/L (137-145)
[2016-12-01] MEDS: REPAGLINIDE 1 MG TAB PO SCH ×3 (07:42→17:25)
[2016-12-01] MEDS: metFORMIN 500 MG TAB PO SCH ×2 (07:42→17:25)
[2016-12-01 07:45] LABS: Basophils # (A) 0.1 k/uL (0-0.2); Basophils % (A) 1 %; CH 33.5; CHCM 32.9; Eosinophils # (A) 0.3 k/uL (0-0.7); Eosinophils % (A) 3 %; HCT 33.1 % (34.0-46.0); HDW 2.52; HGB 10.6 gm/dL (11.4-16.0); Luc # (Auto) 0.23; Luc % (Auto) 2; Lymphocytes # (A) 1.8 k/uL (1.0-4.8); Lymphocytes % (A) 18 %; MCH 32.8 pg (25.0-35.0); MCHC 32.1 g/dL (31.0-37.0); MCV 102.2 fL (80.0-100.0); Macrocytosis Slight; Monocytes # (A) 0.8 k/uL (0-1.0); Monocytes % (A) 8 %; Neutrophils # (A) 6.7 k/uL (1.3-7.7); Neutrophils % (A) 68 %; RBC 3.24 m/uL (3.80-5.40); RDW 14.8 % (11.5-15.5); WBC 9.9 k/uL (3.8-10.6); WBC (Perox) 10.18
[2016-12-01] MEDS: INSULIN LISPRO (humaLOG) 300 UNIT/3 ML VIAL SQ SCH ×4 (07:45→20:18)
[2016-12-01] MEDS: FAMOTIDINE 20 MG TAB PO SCH ×2 (07:55→20:17)
[2016-12-01] MEDS: ASPIRIN 81 MG CHEW PO SCH (07:55)
[2016-12-01] MEDS: ASCORBIC ACID 500 MG TAB PO SCH (07:55)
[2016-12-01] MEDS: LOPERAMIDE 2 MG CAP PO PRN ×3 (07:56→17:25)
[2016-12-01] MEDS: LINAGLIPTIN 5 MG TABLET PO SCH (07:56)
[2016-12-01] MEDS: ACETAMINOPHEN TAB 325 MG TAB PO PRN ×2 (07:56→17:25)
[2016-12-01] MEDS: MULTIVITAMINS, THERA 1 EACH TAB PO SCH (07:56)
[2016-12-01] MEDS: METOPROLOL TARTRATE 12.5 MG TAB PO SCH ×2 (07:56→20:17)
[2016-12-01 07:59] LABS: Glucose,Whole Blood 70 mg/dL (75-99)
--- NOTE | 2016-12-01 10:26 | PN ---
DATE OF SERVICE: 11/30/2016 This 81-year-old woman who was admitted with a UTI with severe sepsis is being closely monitored at this time. The patient on vancomycin as well. The patient is mildly confused. Sensorium has improved significantly. Patient is also followed by infectious disease also. Urinary tract infection was assessed to catheter associated and infected sacral pressure ulcer was also noted. The wound VAC to sacral area has been applied. PAST MEDIC AL HISTORY: Reviewed. REVIEW OF SYSTEMS: CARDIOVASCULAR: No angina or palpitations. RESPIRATORY: No cough, no hemoptysis. GASTROINTESTINAL: No nausea, vomiting, or diarrhea. GENITOURINARY: As mentioned earlier. NERVOUS: As mentioned earlier.. Current medications are reviewed and include: 1. Tylenol 650 q6 p.r.n. 2. Vitamin C. 3. Aspirin 81 mg. 4. Pepcid 20 mg. 5. Lasix 40 mg . 6. Lantus 10 units subcu q.h.s. 7. Humalog scale. 10. Imodium.2 mg t.i.d. 11. Glucophage. 12. Lopressor 13. Multivitamin. 14. Narcan. 15. Zofran. 16. Zosyn. 17. Prandin. 18. Vancomycin. PHYSICAL EXAMINATION: GENERAL: The patient is alert and oriented times 2. VITAL SIGNS: Pulse 80, blood pressure 139/71, respiratory rate 16,. temperature 98.4, pulse ox 98% on room air. HEENT: Conjunctivae normal. Normal oral mucosa. NECK: No jugular venous distention. HEART: S1 and S2, muffled. RESPIRATORY: Breath sounds diminished at the bases. No rhonchi, no crackles. ABDOMEN: Soft, no tenderness. No mass palpable. EXTREMITIES: Legs no edema, no swelling. NERVOUS: Diffusely weak. Labs at this time show glucose 127. The cultures are showing MRSA. ASSESSMENT: 1. Urinary tract infection with severe sepsis, present on admission secondary to methicillin-resistant Staphylococcus aureus. 2. Infected decubitus ulcer, on wound VAC. 3. History of congestive heart failure, not in acute exacerbation. 4. Change in mental status, metabolic encephalopathy possible secondary to sepsis. 5. Increased WBC, possibly secondary to sepsis. 6. Normocytic anemia of chronic disease. 7. Hyponatremia hypovolemic. 8. Diabetes mellitus type 2. 9. Hypoalbuminemia with mild to moderate protein calorie malnutrition. 10. Increased alkaline phosphatase and gait dysfunction. 11. History of diabetes mellitus type 2. 12. History of irritable bowel syndrome. 13. History of degenerative joint disease. 14. History of congestive heart failure, ejection fraction unknown. 15. History of hypertension. 16. History of tonsillectomy. 17. History of colitis. 18. FULL CODE. RECOMMEN DATIONS AND DISCUSSION: This 81-year-old woman presented with multiple complex medical issues, we will continue to monitor the patient closely, continue the current medications, recommend repeat labs, follow the cultures, continue local treatment of the wound, infectious disease evaluation and management, PT, OT evaluation and possible ECF rehab. Guarded prognosis. Further recommendations to follow. MTDD
[2016-12-01 11:44] LABS: Glucose,Whole Blood 127 mg/dL (75-99)
[2016-12-01] MEDS: LISINOPRIL 2.5 MG TAB PO SCH (12:23)
[2016-12-01 16:35] LABS: Glucose,Whole Blood 86 mg/dL (75-99)
[2016-12-01 20:14] LABS: Glucose,Whole Blood 71 mg/dL (75-99)
[2016-12-01] MEDS: INSULIN GLARGINE 100 UNIT/ML 10 ML VIAL SQ SCH (20:16)
[2016-12-02] MEDS: AMPICILLIN-SULBACTAM 3 GM in SODIUM CHLORIDE 0.9% 100 ML IVPB SCH ×3 (05:09→18:11)
[2016-12-02 07:34] LABS: Basophils # (A) 0.1 k/uL (0-0.2); Basophils % (A) 1 %; CHCM 32.9; Eosinophils # (A) 0.4 k/uL (0-0.7); Eosinophils % (A) 3 %; HCT 36.1 % (34.0-46.0); HDW 2.58; HGB 11.4 gm/dL (11.4-16.0); Luc # (Auto) 0.19; Luc % (Auto) 2; Lymphocytes # (A) 1.5 k/uL (1.0-4.8); Lymphocytes % (A) 15 %; MCH 31.8 pg (25.0-35.0); MCHC 31.6 g/dL (31.0-37.0); MCV 100.6 fL (80.0-100.0); Macrocytosis Slight; Mean Platelet Volume 7.8; Monocytes # (A) 0.7 k/uL (0-1.0); Monocytes % (A) 7 %; Neutrophils # (A) 7.7 k/uL (1.3-7.7); Neutrophils % (A) 73 %; RBC 3.59 m/uL (3.80-5.40); RDW 14.6 % (11.5-15.5); WBC 10.6 k/uL (3.8-10.6); WBC (Perox) 11.53
[2016-12-02 07:37] LABS: Glucose,Whole Blood 95 mg/dL (75-99)
[2016-12-02] MEDS: INSULIN LISPRO (humaLOG) 300 UNIT/3 ML VIAL SQ SCH ×4 (07:40→20:16)
[2016-12-02 08:02] LABS: Anion Gap 11 mmol/L; Blood Urea Nitrogen 6 mg/dL (7-17); Calcium 8.6 mg/dL (8.4-10.2); Carbon Dioxide 32 mmol/L (22-30); Chloride 102 mmol/L (98-107); Glucose 97 mg/dL (74-99); Non-African American GFR(MDRD) >60 (>60 ml/min/1.73 sqM); Potassium 3.7 mmol/L (3.5-5.1); Sodium 145 mmol/L (137-145)
[2016-12-02] MEDS: REPAGLINIDE 1 MG TAB PO SCH ×3 (08:17→17:30)
[2016-12-02] MEDS: FUROSEMIDE 40 MG TAB PO SCH (08:18)
[2016-12-02] MEDS: metFORMIN 500 MG TAB PO SCH ×2 (08:18→17:30)
[2016-12-02] MEDS: ASCORBIC ACID 500 MG TAB PO SCH (08:18)
[2016-12-02] MEDS: POTASSIUM CHLORIDE ER 10 MEQ TAB.ER.PRT PO SCH (08:18)
[2016-12-02] MEDS: FAMOTIDINE 20 MG TAB PO SCH ×2 (08:18→20:16)
[2016-12-02] MEDS: METOPROLOL TARTRATE 12.5 MG TAB PO SCH ×2 (08:18→20:16)
[2016-12-02] MEDS: MULTIVITAMINS, THERA 1 EACH TAB PO SCH (08:19)
[2016-12-02] MEDS: ASPIRIN 81 MG CHEW PO SCH (08:19)
[2016-12-02] MEDS: LINAGLIPTIN 5 MG TABLET PO SCH (08:19)
[2016-12-02] MEDS: LOPERAMIDE 2 MG CAP PO PRN ×3 (08:27→20:19)
[2016-12-02] MEDS: ACETAMINOPHEN TAB 325 MG TAB PO PRN ×2 (08:27→17:33)
--- NOTE | 2016-12-02 10:04 | PN ---
DATE OF SERVICE: 12/01/2016 This is an 81-year-old woman who was admitted with UTI with severe sepsis, being closely monitored. No chest pain or palpitations. No fever. The patient also has an infected decubitus ulcer, also wound VAC has been removed. No chest pain or palpitations. The patient is on broad-spectrum IV antibiotics. On exam, alert, oriented x2. Pulse 82, blood pressure 130/87, respirations 16, temperature 98.4, pulse ox 97% on room air. HEENT: Conjunctiva normal. NECK: No JVD. CARDIOVASCULAR: S1 and S2 muffled. RESPIRATORY: Breath sounds diminished at bases. Scattered rhonchi. No crackles. ABDOMEN: Soft, nontender. NERVOUS SYSTEM: Diffusely weak. SKIN: Sacral decubitus ulcer present. LABS: Hemoglobin 10.6. Accu-Cheks are noted. ASSESSMENT: 1. Urinary tract infection with severe sepsis present on admission secondary to methicillin-resistant Staphylococcus aureus. 2. Infected decubitus ulcer, on wound VAC. 3. History of congestive heart failure, not in acute exacerbation. 4. Change in mental status, metabolic encephalopathy, possibly secondary to sepsis. 5. Increased WBC, possibly secondary to sepsis and normocytic anemia of chronic disease. 6. Hyponatremia, hypovolemic. 7. Diabetes mellitus type 2. 8. Hypoalbuminemia with mild to moderate protein calorie malnutrition. 9. Increased alkaline phosphatase. 10. Gait dysfunction. 11. History of diabetes mellitus type 2. 12. History of irritable bowel syndrome. 13. History of degenerative joint disease. 14. History of congestive heart failure, ejection fraction unknown. 15. History of hypertension. 16. History of tonsillectomy. 17. History of colitis. 18. FULL CODE. RECOMMENDATIONS AND DISCUSSION: Continue with monitoring and symptomatic treatment. Otherwise would recommend to repeat labs. Continue with antibiotics. reinforcing iron and rebar workers and mental health case manager following closely. Follow with infectious disease. Guarded prognosis. Further recommendations to follow.
[2016-12-02 11:36] LABS: Glucose,Whole Blood 162 mg/dL (75-99)
[2016-12-02] MEDS: LISINOPRIL 2.5 MG TAB PO SCH (13:40)
[2016-12-02] MEDS: VANCOMYCIN 1,250 MG in SODIUM CHLORIDE 0.9% 250 ML IVPB SCH (13:41)
[2016-12-02 16:23] LABS: Glucose,Whole Blood 120 mg/dL (75-99)
[2016-12-02 20:01] LABS: Glucose,Whole Blood 121 mg/dL (75-99)
[2016-12-02] MEDS: INSULIN GLARGINE 100 UNIT/ML 10 ML VIAL SQ SCH (20:16)
[2016-12-03] MEDS: AMPICILLIN-SULBACTAM 3 GM in SODIUM CHLORIDE 0.9% 100 ML IVPB SCH ×5 (00:49→23:27)
[2016-12-03] MEDS: LOPERAMIDE 2 MG CAP PO PRN ×4 (01:43→19:24)
[2016-12-03] MEDS ORDERED: VANCOMYCIN TROUGH DUE 1 EACH MISC MISCELLANE ONE (03:00)
[2016-12-03 03:41] LABS: Basophils # (A) 0.1 k/uL (0-0.2); Basophils % (A) 1 %; CH 32.8; CHCM 32.8; Eosinophils # (A) 0.5 k/uL (0-0.7); Eosinophils % (A) 4 %; HCT 34.4 % (34.0-46.0); HDW 2.59; HGB 11.2 gm/dL (11.4-16.0); Luc # (Auto) 0.26; Luc % (Auto) 2; Lymphocytes # (A) 1.8 k/uL (1.0-4.8); Lymphocytes % (A) 15 %; MCH 32.8 pg (25.0-35.0); MCHC 32.6 g/dL (31.0-37.0); MCV 100.5 fL (80.0-100.0); Macrocytosis Slight; Mean Platelet Volume 7.2; Monocytes # (A) 0.7 k/uL (0-1.0); Monocytes % (A) 6 %; Neutrophils # (A) 8.9 k/uL (1.3-7.7); Neutrophils % (A) 72 %; RBC 3.42 m/uL (3.80-5.40); RDW 14.7 % (11.5-15.5); WBC 12.4 k/uL (3.8-10.6)
[2016-12-03 03:46] LABS: Anion Gap 11 mmol/L; Blood Urea Nitrogen 6 mg/dL (7-17); Calcium 8.1 mg/dL (8.4-10.2); Carbon Dioxide 27 mmol/L (22-30); Chloride 102 mmol/L (98-107); Glucose 127 mg/dL (74-99); Non-African American GFR(MDRD) >60 (>60 ml/min/1.73 sqM); Potassium 3.3 mmol/L (3.5-5.1); Sodium 140 mmol/L (137-145)
[2016-12-03] MEDS: VANCOMYCIN 1,250 MG in SODIUM CHLORIDE 0.9% 250 ML IVPB SCH ×2 (04:08→19:24)
[2016-12-03 07:29] LABS: Glucose,Whole Blood 134 mg/dL (75-99)
[2016-12-03] MEDS: ACETAMINOPHEN TAB 325 MG TAB PO PRN ×2 (08:38→18:19)
[2016-12-03] MEDS: MULTIVITAMINS, THERA 1 EACH TAB PO SCH (08:40)
[2016-12-03] MEDS: ASPIRIN 81 MG CHEW PO SCH (08:40)
[2016-12-03] MEDS: REPAGLINIDE 1 MG TAB PO SCH ×3 (08:40→19:24)
[2016-12-03] MEDS: ASCORBIC ACID 500 MG TAB PO SCH (08:40)
[2016-12-03] MEDS: METOPROLOL TARTRATE 12.5 MG TAB PO SCH ×2 (08:40→19:25)
[2016-12-03] MEDS: FAMOTIDINE 20 MG TAB PO SCH ×2 (08:40→19:24)
[2016-12-03] MEDS: LINAGLIPTIN 5 MG TABLET PO SCH (08:40)
[2016-12-03] MEDS: metFORMIN 500 MG TAB PO SCH ×2 (08:40→18:19)
[2016-12-03] MEDS: INSULIN LISPRO (humaLOG) 300 UNIT/3 ML VIAL SQ SCH ×4 (08:41→20:59)
--- NOTE | 2016-12-03 09:00 | PN ---
DATE OF SERVICE: 12/02/2016 This 81-year-old woman was admitted with UTI with sepsis, is being closely monitored. The patient has been treated for decubitus ulcer. Has agreed for PICC line at this time. No chest pain, no palpitation, no fever. On exam, alert and oriented x3. Pulse 83, blood pressure 130/79, respirations 17, temperature is 97.8, pulse ox 94% on room air. HEENT: Conjunctivae normal. NECK: No jugular venous distension. LUNGS: Breath sounds diminished at the bases, a few rhonchi, no crackles. ABDOMEN: Soft, nontender. LEGS: No edema, no swelling. NERVOUS SYSTEM: Diffusely weak. LABS: MCV 100.6. CO2 is 32. ASSESSMENT: 1. Urinary tract infection with severe sepsis, present on admission secondary to methicillin-resistant Staphylococcus aureus. 2. Infected decubitus ulcer was on wound VAC. 3. History of congestive heart failure, not in acute exacerbation. 4. Change in mental status with metabolic encephalopathy, possibly secondary to sepsis. 5. Increased WBC, possibly secondary to sepsis and normocytic anemia of chronic disease. 6. Hyponatremia, hypovolemic. 7. Diabetes mellitus type 2. 8. Gait dysfunction. 9. Hypoalbuminemia with mild to moderate protein calorie malnutrition. 10. Increased alkaline phosphatase. 11. History of diabetes mellitus type 2. 12. History of irritable bowel syndrome. 13. History of degenerative joint disease. 14. History of congestive heart failure, ejection fraction unknown. 15. History of hypertension. 16. History of tonsillectomy. 17. History of colitis. 18. FULL CODE. RECOMMENDATION: Recommend to continue current medications. Continue with the symptomatic treatment. Continue with the IV antibiotics, probable PICC line, possible ECF rehab. Guarded prognosis because of multiple complex medical issues and further recommendations to follow.
[2016-12-03 11:30] LABS: Glucose,Whole Blood 128 mg/dL (75-99)
[2016-12-03] MEDS: LISINOPRIL 2.5 MG TAB PO SCH ×2 (15:10→19:24)
[2016-12-03 16:39] LABS: Glucose,Whole Blood 87 mg/dL (75-99)
--- NOTE | 2016-12-03 19:25 | PN ---
DATE OF SERVICE: 12/03/2016 This 81-year-old woman who was admitted 2 UTI with severe sepsis also had MRSA isolated. Patient is on antibiotics. Infectious Disease is following the patient closely. No chest. No palpitation. No fever. On exam, alert and oriented x3. Pulse is 83, blood pressure 139/75, respiratory rate 16, temperature 97.3, pulse ox 99% on room air. HEENT: Conjunctivae normal. NECK: No jugular venous distention. CARDIOVASCULAR SYSTEM: S1, S2 muffled. RESPIRATORY SYSTEM: Breath sounds diminished at the bases. A few scattered rhonchi and crackles. ABDOMEN: Soft, non-tender. LEGS: No edema. No swelling. NERVOUS SYSTEM: No focal deficit. LABS: WBC 12.4, hemoglobin 11.2. Glucose 128. C difficile is negative. ASSESSMENT: 1. Urinary tract infection with severe sepsis, present on admission, secondary to methicillin-resistant Staphylococcus aureus. 2. Infected decubitus ulcers, on wound V.A.C. 3. History of congestive heart failure; no acute exacerbation. 4. Change in mental status, metabolic encephalopathy, possibly secondary to sepsis. 5. Increased white count, possibly secondary to sepsis. 6. Normocytic anemia; anemia of chronic disease. 7. Hyponatremia, hypovolemic. 8. Diabetes mellitus, type 2. 9. Gait dysfunction. 10. Hypoalbuminemia with mild to moderate protein-calorie malnutrition. 11. Increased alkaline phosphatase. 12. History of irritable bowel syndrome. 13. History of degenerative joint disease. 14. History of congestive heart failure; ejection fraction unknown. 15. History of hypertension. 16. History of tonsillectomy. 17. History of colitis. 18. FULL CODE. RECOMMENDATIONS AND DISCUSSION: In this 81-year-old woman who presented with multiple complex medical issues, we will monitor the patient closely, continue the current medications, continue symptomatic treatment. Otherwise, at this time further antibiotics per Infectious Disease. Guarded prognosis because of multiple complex medical issues. Further recommendations to follow.
[2016-12-03] MEDS: INSULIN GLARGINE 100 UNIT/ML 10 ML VIAL SQ SCH (20:58)
[2016-12-03 21:06] LABS: Glucose,Whole Blood 170 mg/dL (75-99)
--- NOTE | 2016-12-03 22:59 | P.PN ---
Subjective Principal diagnosis: Coccyx pressure ulcer stage IV 81-year-old woman who is known to the provider from her visit at the wound healing Center where she presented for the long-standing history of ulceration to her coccyx. She is quite leery about any further interventions. She was transferred from the extended care facility because of her high-grade fever of 103. 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 He constantly plan was for PICC line placement and intravenous antibiotic therapy. Patient will refuse any further interventions and she was discharged in the wound healing Center. A presents to Hospital ill with high-grade fever and sepsis. Because of this the infectious diseases consultation was requested. Patient is now agreeing for PICC line placement. Objective - Vital Signs Vital signs: Vital Signs Temp 97.6 F 12/03/16 19:21 Pulse 89 12/03/16 19:21 Resp 16 12/03/16 19:33 BP 123/68 12/03/16 19:21 Pulse Ox 97 12/03/16 19:21 Intake & Output 12/03/16 12/03/16 12/04/16 06:59 18:59 06:59 Intake Total 250 460 500 Output Total 800 900 Balance -550 -440 500 Intake: Intake, IV Titration 250 100 Amount Ampicillin-Sulbactam 3 gm 100 In Sodium Chloride 0.9% 100 ml @ 100 mls/hr IVPB Q6HR [facility] Rx#:[id number] Vancomycin 1,250 mg In 250 Sodium Chloride 0.9% 250 ml @ 125 mls/hr IVPB Q16H [facility] Rx#:[id number] Oral 360 500 Output: Urine 800 900 Uretheral (Orellana) 500 900 Other: Voiding Method Indwelling Catheter Indwelling Catheter # Bowel Movements 1 - Exam Elderly 81-year-old woman who is anxious with chronic ulceration. HEENT: Anicteric conjunctiva are pink and moist nasal mucosa grossly intact without significant lesions, there is no thrush. Edentulous Neck: The neck is supple without significant lymphadenopathy or thyromegaly. Lungs: Symmetrical air entry with few scattered crackles Heart: Regular without audible S1 and S2 without S4 no murmur click or rub Abdomen: Positive bowel sounds soft and nontender without palpable masses or organomegaly. There was no guarding or rebound. Extremities: The upper extremities have excellent pulses they are symmetric, no significant petechiae or telangiectasia. No splinter hemorrhages were noted. The lower extremities are free from significant edema. The peripheral pulses were 2+ and symmetric. Neuro: Anxious somewhat uncooperative.. Coccyx shows evidence of the stage IV ulceration is measuring at 5.3 x 6 x 5 cm. - Labs CBC & Chem 7: 12/03/16 03:18 12/03/16 03:18 Labs: Abnormal Lab Results - Last 24 Hours (Table) 12/03/16 12/03/16 12/03/16 Range/Units 03:18 03:18 07:13 WBC 12.4 H (3.8-10.6) k/uL RBC 3.42 L (3.80-5.40) m/uL Hgb 11.2 L (11.4-16.0) gm/dL MCV 100.5 H (80.0-100.0) fL Neutrophils # 8.9 H (1.3-7.7) k/uL Potassium 3.3 L (3.5-5.1) mmol/L BUN 6 L (7-17) mg/dL Creatinine 0.40 L (0.52-1.04) mg/dL Glucose 127 H (74-99) mg/dL POC Glucose (mg/dL) 134 H (75-99) mg/dL Calcium 8.1 L (8.4-10.2) mg/dL 12/03/16 12/03/16 Range/Units 11:27 20:52 WBC (3.8-10.6) k/uL RBC (3.80-5.40) m/uL Hgb (11.4-16.0) gm/dL MCV (80.0-100.0) fL Neutrophils # (1.3-7.7) k/uL Potassium (3.5-5.1) mmol/L BUN (7-17) mg/dL Creatinine (0.52-1.04) mg/dL Glucose (74-99) mg/dL POC Glucose (mg/dL) 128 H 170 H (75-99) mg/dL Calcium (8.4-10.2) mg/dL Microbiology - Last 24 Hours (Table) 11/28/16 17:20 Anaerobic Culture - Final Buttock Laboratory Results WBC 12.4 k/uL (3.8-10.6) H 12/03/16 03:18 RBC 3.42 m/uL (3.80-5.40) L 12/03/16 03:18 Hgb 11.2 gm/dL (11.4-16.0) L 12/03/16 03:18 Hct 34.4 % (34.0-46.0) 12/03/16 03:18 MCV 100.5 fL (80.0-100.0) H 12/03/16 03:18 MCH 32.8 pg (25.0-35.0) 12/03/16 03:18 MCHC 32.6 g/dL (31.0-37.0) 12/03/16 03:18 RDW 14.7 % (11.5-15.5) 12/03/16 03:18 Plt Count 360 k/uL (150-450) 12/03/16 03:18 Neutrophils % 72 % 12/03/16 03:18 Lymphocytes % 15 % 12/03/16 03:18 Monocytes % 6 % 12/03/16 03:18 Eosinophils % 4 % 12/03/16 03:18 Basophils % 1 % 12/03/16 03:18 Neutrophils # 8.9 k/uL (1.3-7.7) H 12/03/16 03:18 Lymphocytes # 1.8 k/uL (1.0-4.8) 12/03/16 03:18 Monocytes # 0.7 k/uL (0-1.0) 12/03/16 03:18 Eosinophils # 0.5 k/uL (0-0.7) 12/03/16 03:18 Basophils # 0.1 k/uL (0-0.2) 12/03/16 03:18 Macrocytosis Slight 12/03/16 03:18 Sodium 140 mmol/L (137-145) 12/03/16 03:18 Potassium 3.3 mmol/L (3.5-5.1) L 12/03/16 03:18 Chloride 102 mmol/L (98-107) 12/03/16 03:18 Carbon Dioxide 27 mmol/L (22-30) 12/03/16 03:18 Anion Gap 11 mmol/L 12/03/16 03:18 BUN 6 mg/dL (7-17) L 01/03/17 03:18 Creatinine 0.40 mg/dL (0.52-1.04) L 12/03/16 03:18 Est GFR (MDRD) Af Amer >60 (>60 ml/min/1.73 sqM) 12/03/16 03:18 Est GFR (MDRD) Non-Af >60 (>60 ml/min/1.73 sqM) 12/03/16 03:18 Glucose 127 mg/dL (74-99) H 12/03/16 03:18 POC Glucose (mg/dL) 170 mg/dL (75-99) H 12/03/16 20:52 POC Glu Key Maker ID Alondra Salas 12/03/16 20:[address] Glu mg/dL 97 mg/dL 11/28/16 07:01 Hemoglobin A1c 5.0 % (4.2-6.1) 11/28/16 07:01 Plasma Lactic Acid Varun 1.2 mmol/L (0.7-2.0) 11/27/16 18:15 Calcium 8.1 mg/dL (8.4-10.2) L 12/03/16 03:18 Total Bilirubin 0.8 mg/dL (0.2-1.3) 11/28/16 07:01 AST 18 U/L (14-36) 11/28/16 07:01 ALT 34 U/L (9-52) 11/28/16 07:01 Alkaline Phosphatase 209 U/L (38-126) H 11/28/16 07:01 Total Protein 5.6 g/dL (6.3-8.2) L 11/28/16 07:01 Albumin 2.6 g/dL (3.5-5.0) L 11/28/16 07:01 Urine Color Yellow 11/27/16 18:15 Urine Appearance Turbid (Clear) H 11/27/16 18:15 Urine pH 5.5 (5.0-8.0) 11/27/16 18:15 Ur Specific [place] 1.017 (1.001-1.035) 11/27/16 18:15 Urine Protein 1+ (Negative) H 11/27/16 18:15 Urine Glucose (UA) Negative (Negative) 11/27/16 18:15 Urine Ketones 2+ (Negative) H 11/27/16 18:15 Urine Blood Trace (Negative) H 11/27/16 18:15 Urine Nitrate Positive (Negative) H 11/27/16 18:15 Urine Bilirubin Negative (Negative) 11/27/16 18:15 Urine Urobilinogen 3.0 mg/dL (<2.0) 11/27/16 18:15 Ur Leukocyte Esterase Large (Negative) H 11/27/16 18:15 Urine RBC 51 /hpf (0-5) H 11/27/16 18:15 Urine WBC >182 /hpf (0-5) H 11/27/16 18:15 Urine WBC Clumps Many /hpf (None) H 11/27/16 18:15 Urine Bacteria Many /hpf (None) H 11/27/16 18:15 Urine Mucus Many /hpf (None) H 11/27/16 18:15 Vancomycin Trough 14.1 ug/mL 12/03/16 03:18 C. difficile (EIA) Intrp Negative (Negative) 12/03/16 14:00 Microbiology 11/27/16 18:15 Blood Blood Culture - Final No Growth after 144 hours 11/28/16 17:20 Buttock Anaerobic Culture - Final 11/28/16 17:20 Buttock Gram Stain - Final 11/28/16 17:20 Buttock Wound Culture - Final Methicillin resist S. aureus Assessment and Plan (1) Sepsis Narrative/Plan: 81-year-old female presented to Hospital from [facility] with evidence of sepsis. 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 Cultures revealed evidence of enterococcus as well as gram-negative anaerobic bacteria and there was plans for PICC line placement and intravenous antibiotic therapy. The patient however declined further treatment and was discharged from the wound center due to her lack of medical compliance. Now presents to Hospital ill and likely has evidence of sepsis or urinary system as well as possibly worsening of infection to the coccyx is under by the new bacteria of MRSA be nicely from that site. Consequently for antibiotic therapy Unasyn will be utilized. Vancomycin will be utilized for the newly isolated MRSA. Blood culture obtained. Urine culture if not done she also be obtained. Urinalysis was markedly abnormal. Her leukocytosis is starting to improve. In her high-grade fever is also improving. She continues to have a very difficult personality. She now agrees to a PICC line. This is been requested. Would like to have her follow-up healing center after her discharge the care of the ostomy latest to her pelvis. Status: Acute (2) Pressure ulcer of coccygeal region, stage 4 Status: Acute (3) Urinary tract infection Status: Acute (4) Leukocytosis Status: Acute
[2016-12-04] MEDS: AMPICILLIN-SULBACTAM 3 GM in SODIUM CHLORIDE 0.9% 100 ML IVPB SCH ×4 (04:57→22:46)
[2016-12-04 06:45] LABS: Glucose,Whole Blood 70 mg/dL (75-99)
[2016-12-04 07:26] LABS: Basophils # (A) 0.1 k/uL (0-0.2); Basophils % (A) 1 %; CH 33.2; CHCM 32.7; Eosinophils # (A) 0.5 k/uL (0-0.7); Eosinophils % (A) 4 %; HCT 34.8 % (34.0-46.0); HDW 2.59; HGB 10.9 gm/dL (11.4-16.0); Luc # (Auto) 0.18; Luc % (Auto) 2; Lymphocytes # (A) 2.1 k/uL (1.0-4.8); Lymphocytes % (A) 19 %; MCHC 31.4 g/dL (31.0-37.0); Macrocytosis Slight; Monocytes # (A) 0.8 k/uL (0-1.0); Monocytes % (A) 7 %; Neutrophils # (A) 7.6 k/uL (1.3-7.7); Neutrophils % (A) 68 %; RBC 3.41 m/uL (3.80-5.40); RDW 14.9 % (11.5-15.5); WBC 11.2 k/uL (3.8-10.6); WBC (Perox) 11.96
[2016-12-04 07:37] LABS: Anion Gap 11 mmol/L; Blood Urea Nitrogen 3 mg/dL (7-17); Calcium 8.2 mg/dL (8.4-10.2); Carbon Dioxide 28 mmol/L (22-30); Chloride 104 mmol/L (98-107); Glucose 71 mg/dL (74-99); Non-African American GFR(MDRD) >60 (>60 ml/min/1.73 sqM); Potassium 3.4 mmol/L (3.5-5.1); Sodium 143 mmol/L (137-145)
[2016-12-04] MEDS: INSULIN LISPRO (humaLOG) 300 UNIT/3 ML VIAL SQ SCH ×4 (08:36→22:01)
[2016-12-04] MEDS: FAMOTIDINE 20 MG TAB PO SCH ×2 (08:44→19:57)
[2016-12-04] MEDS: ASCORBIC ACID 500 MG TAB PO SCH (08:44)
[2016-12-04] MEDS: metFORMIN 500 MG TAB PO SCH ×2 (08:44→17:45)
[2016-12-04] MEDS: LINAGLIPTIN 5 MG TABLET PO SCH (08:44)
[2016-12-04] MEDS: REPAGLINIDE 1 MG TAB PO SCH ×4 (08:45→19:57)
[2016-12-04] MEDS: ASPIRIN 81 MG CHEW PO SCH (08:45)
[2016-12-04] MEDS: METOPROLOL TARTRATE 12.5 MG TAB PO SCH ×2 (08:46→19:57)
[2016-12-04] MEDS: MULTIVITAMINS, THERA 1 EACH TAB PO SCH (08:46)
[2016-12-04] MEDS: POTASSIUM CHLORIDE ER 10 MEQ TAB.ER.PRT PO SCH (08:46)
[2016-12-04] MEDS: FUROSEMIDE 40 MG TAB PO SCH (08:46)
[2016-12-04] MEDS: ACETAMINOPHEN TAB 325 MG TAB PO PRN ×2 (08:47→17:44)
[2016-12-04] MEDS: LOPERAMIDE 2 MG CAP PO PRN ×2 (08:50→17:45)
[2016-12-04] MEDS: VANCOMYCIN 1,250 MG in SODIUM CHLORIDE 0.9% 250 ML IVPB SCH (11:21)
[2016-12-04 12:14] LABS: Glucose,Whole Blood 77 mg/dL (75-99)
[2016-12-04] MEDS: LISINOPRIL 2.5 MG TAB PO SCH (15:18)
[2016-12-04 17:11] LABS: Glucose,Whole Blood 90 mg/dL (75-99)
[2016-12-04] MEDS ORDERED: POTASSIUM CHLORIDE ER 20 MEQ TAB.ER PO STA (19:31)
[2016-12-04 20:31] LABS: Glucose,Whole Blood 97 mg/dL (75-99)
[2016-12-04] MEDS: INSULIN GLARGINE 100 UNIT/ML 10 ML VIAL SQ SCH (21:08)
[2016-12-05] MEDS: VANCOMYCIN 1,250 MG in SODIUM CHLORIDE 0.9% 250 ML IVPB SCH (03:44)
[2016-12-05] MEDS: AMPICILLIN-SULBACTAM 3 GM in SODIUM CHLORIDE 0.9% 100 ML IVPB SCH ×3 (06:05→17:30)
[2016-12-05 07:13] LABS: Glucose,Whole Blood 165 mg/dL (75-99)
[2016-12-05 07:49] LABS: Basophils # (A) 0.1 k/uL (0-0.2); Basophils % (A) 1 %; CH 32.9; CHCM 32.4; Eosinophils # (A) 0.4 k/uL (0-0.7); Eosinophils % (A) 4 %; HCT 34.3 % (34.0-46.0); HDW 2.58; HGB 10.8 gm/dL (11.4-16.0); Luc # (Auto) 0.23; Luc % (Auto) 2; Lymphocytes # (A) 1.8 k/uL (1.0-4.8); Lymphocytes % (A) 16 %; MCH 32.2 pg (25.0-35.0); MCHC 31.5 g/dL (31.0-37.0); MCV 102.2 fL (80.0-100.0); Macrocytosis Slight; Mean Platelet Volume 7.9; Monocytes # (A) 0.8 k/uL (0-1.0); Monocytes % (A) 7 %; Neutrophils # (A) 7.8 k/uL (1.3-7.7); Neutrophils % (A) 70 %; RBC 3.35 m/uL (3.80-5.40); RDW 14.9 % (11.5-15.5); WBC 11.1 k/uL (3.8-10.6); WBC (Perox) 12.11
[2016-12-05 08:16] LABS: Anion Gap 12 mmol/L; Blood Urea Nitrogen 3 mg/dL (7-17); Calcium 7.8 mg/dL (8.4-10.2); Carbon Dioxide 28 mmol/L (22-30); Chloride 103 mmol/L (98-107); Glucose 172 mg/dL (74-99); Non-African American GFR(MDRD) >60 (>60 ml/min/1.73 sqM); Potassium 3.9 mmol/L (3.5-5.1); Sodium 143 mmol/L (137-145)
--- NOTE | 2016-12-05 08:41 | PN ---
DATE OF SERVICE: 12/04/2016 This 81-year-old woman is admitted with UTI with sepsis, also had MRSA. The patient is slated to have recent PICC line and possible ECF. No chest pain, no palpitation. On exam, alert and oriented x2. Pulse of 48, blood pressure 140/81, respirations 15, temperature 98 degrees, pulse ox 97% on room air. HEENT: Conjunctivae normal. NECK: No jugular venous distension. CARDIOVASCULAR SYSTEM: S1, S2, muffled. RESPIRATORY: Breath sounds diminished at the bases, a few scattered rhonchi, no crackles. Abdomen is soft. EXTREMITIES: Legs no edema, no swelling. NERVOUS SYSTEM: Mild diffuse weakness. LABS: WBC is 11., hemoglobin is 10.9. ASSESSMENT: 1. Urinary tract infection with severe sepsis, present on admission secondary to methicillin-resistant Staphylococcus aureus. 2. Infected decubitus ulcer on a wound VAC. 3. History of congestive heart failure, no acute exacerbation. 4. Change in mental status with metabolic encephalopathy, possibly secondary to sepsis. 5. Increased WBC possibly secondary to sepsis. 6. Normocytic anemia, anemia of chronic disease. 7. Hyponatremia, hypovolemia 8. Diabetes mellitus type 2. 9. Gait dysfunction. 10. Hypoalbuminemia with mild to moderate protein calorie malnutrition. 11. Increased alkaline phosphatase. 12. Irritable bowel syndrome. 13. History of degenerative joint disease. 14. History of congestive heart failure, ejection fraction unknown. 15. History of hypertension. 16. History of tonsillectomy. 17. History of colitis. 18. FULL CODE. RECOMMENDATION: Recommend to continue with current medication, continue with the monitoring and symptomatic treatment. Otherwise, continue with the antibiotics. Otherwise, I would recommend potassium supplementation and repeat labs. Closely monitor. Guarded prognosis because of multiple complex medical issues. Further recommendations to follow. See orders for further details.
[2016-12-05] MEDS: INSULIN LISPRO (humaLOG) 300 UNIT/3 ML VIAL SQ SCH ×3 (08:42→17:25)
[2016-12-05] MEDS: metFORMIN 500 MG TAB PO SCH ×2 (08:45→17:25)
[2016-12-05] MEDS: ASCORBIC ACID 500 MG TAB PO SCH (08:45)
[2016-12-05] MEDS: ASPIRIN 81 MG CHEW PO SCH (08:46)
[2016-12-05] MEDS: METOPROLOL TARTRATE 12.5 MG TAB PO SCH (08:46)
[2016-12-05] MEDS: MULTIVITAMINS, THERA 1 EACH TAB PO SCH (08:46)
[2016-12-05] MEDS: LINAGLIPTIN 5 MG TABLET PO SCH (08:46)
[2016-12-05] MEDS: FAMOTIDINE 20 MG TAB PO SCH (08:46)
[2016-12-05] MEDS: ACETAMINOPHEN TAB 325 MG TAB PO PRN ×2 (08:53→18:15)
[2016-12-05] MEDS: LOPERAMIDE 2 MG CAP PO PRN ×2 (08:53→18:13)
[2016-12-05 11:24] LABS: Glucose,Whole Blood 199 mg/dL (75-99)
[2016-12-05] MEDS: LISINOPRIL 2.5 MG TAB PO SCH (13:05)
[2016-12-05] MEDS: REPAGLINIDE 1 MG TAB PO SCH ×2 (13:05→17:31)
[2016-12-05 15:21] VITALS: BP 132/72; PULSE 95; RESP 16; TEMP 98
[2016-12-05] MEDS ORDERED: LIDOCAINE 2% INJ 20 MG/ML SQ ONE (15:27)
--- NOTE | 2016-12-05 15:29 | DS ---
DATE OF ADMISSION: 11/27/2016 DATE OF DISCHARGE: FINAL DIAGNOSES: 1. Urinary tract infection with severe sepsis present on admission secondary to methicillin-resistant Staphylococcus aureus. 2. Infected decubitus ulcer on wound VAC. 3. History of congestive heart failure with an acute exacerbation. 4. Change in mental status, metabolic encephalopathy, possibly secondary to sepsis. 5. Increased WBC, possibly secondary to sepsis, normocytic, anemia of chronic disease. 6. Hyponatremia. 7. Hypovolemia. 8. Diabetes mellitus type 2. 9. Gait dysfunction. 10. Hypoalbuminemia with mild to moderate protein calorie malnutrition. 11. Increased alkaline phosphatase. 12. Irritable bowel syndrome. 13. History of degenerative joint disease. 14. History of congestive heart failure, ejection fraction unknown. 15. History of hypertension. 16. History of tonsillectomy. 17. History of colitis. 18. FULL CODE. DISCHARGE DISPOSITION: The patient will be discharged in a stable condition with guarded prognosis. Total time taken 35 minutes. HISTORY OF PRESENT ILLNESS: This 81 -year-old woman with past medical history of multiple medical problems, being followed by Dr. Gaytan in [facility] was admitted with UTI with sepsis and as well as decubitus ulcer. The patient was treated in conjunction with infectious disease. The patient's care was coordinated. Cultures are showing methicillin-resistant Staphylococcus aureus. The patient is started on IV antibiotics. The PICC line was inserted and outpatient IV antibiotics were at this time. On exam, vitals are stable. CARDIOVASCULAR: S1, S2 muffled. ABDOMEN: Soft. Nervous system: No focal deficits. DISCHARGE ADVICE AND MEDICATIONS: 1. Activity limited until follow-up. 2. Follow-up with Dr. Gaytan in the [facility] in 2 to 3 days. 3. Follow up with Dr. Quiñonez as recommended. 4. PICC line care. 5. IV antibiotics per Dr. Qiuñonez. 6. Tylenol 500 mg q.6 p.r.n. 7. ProStat 30 mg p.o. b.i.d. 8. Unasyn 3 grams q6 for 42 days. 9. Vitamin C 1000 mg p.o. daily. 10. Ecotrin 81 mg p.o. daily. 11. Pepcid 20 mg daily. 12. Lasix 40 mg Friday, Friday, Friday. 13. Glucerna one p.o. t.i.d. 14. Humalog scale that is 150 to 200 2 units, 200 to 250 4 units, 250 to 300 6 unites, 300 to 350 8 units and 350 to 400 10 units, more than 400 call. 15. Lantus 15 units subcu q.h.s. 16. Tradjenta 5 mg p.o. daily. 17. Zestril 2.5 mg p.o. daily. 18. Imodium 2 mg q.i.d. p.r.n. 19. Lopressor 12.5 mg p.o. b.i.d. 20. K-Dur 10 meq p.o. daily. 21. Prandin 1 mg a.c. t.i.d. 22. Vancomycin 1.25 IV q.16 for 42 days. 23. Glucophage 1000 mg daily. Once again, the patient will be discharged in a stable condition with guarded prognosis. MTDD
[2016-12-05 16:08] LABS: Glucose,Whole Blood 63 mg/dL (75-99)
[2016-12-05 16:26] LABS: Glucose,Whole Blood 74 mg/dL (75-99)
--- NOTE | 2016-12-05 17:30 | IR ---
EXAMINATION TYPE: IR cvc insert >=5 years DATE OF EXAM: 12/05/2016 3:34 PM COMPARISON: NONE CLINICAL HISTORY: Infection Needs long-term intravenous access for antibiotics. PROCEDURE: After informed consent, the skin overlying the left brachial vein was localized with ultrasound and n oted to be compressible and patent. An ultrasound image was obtained and submitted on the patient's chart. The overlying skin was prepped and draped and Lidocaine was used for local anesthesia. A ski n mini was made with a scalpel. Access was gained to the vein under ultrasound guidance with a 21 ga uge needle and a 0.018 inch wire was advanced. Access site was dilated with Peel-Away sheath and cat heter tailored to the appropriate length and advanced such that the distal tip is at the cavoatrial j unction. Spot image was obtained verifying placement. Catheter was fixed to the skin with suture an d a sterile dressing was placed following hemostasis. Catheter was aspirated and flushed with saline . Patient was discharged in stable condition without complication. Maximal barrier technique is util ized. Ultrasound image is documented on the chart. Ultrasound used with sterile technique. Fluoro time and fluoroscopic images submitted to document procedure: 1.4 minutes fluoroscopy time, 17 intraoperative C-arm images document the procedure IMPRESSION: STATUS POST ULTRASOUND AND FLUOROSCOPIC GUIDED PICC LINE PLACEMENT, READY FOR USE. THIS PROCEDURE WAS PERFORMED BY THE UNDERSIGNED.
== END 2016-12-05 18:35 | DRG 698 ==
LOC: EC 17:19 → 3SUR 22:47
PROVIDERS: ADMIT Internal Medicine; ATTEND Internal Medicine
PROC: 02HV33Z Insertion of Infusion Device into Superior Vena Cava, Percutaneous Approach (ICD-10-PCS; principal; 2016-12-05 07:30)
DX: T83.518A Infection and inflammatory reaction due to other urinary catheter, initial encounter (principal); A41.02 Sepsis due to Methicillin resistant Staphylococcus aureus; G93.41 Metabolic encephalopathy; L89.154 Pressure ulcer of sacral region, stage 4; R65.20 Severe sepsis without septic shock; E44.0 Moderate protein-calorie malnutrition; N39.0 Urinary tract infection, site not specified; I50.22 Chronic systolic (congestive) heart failure; E87.1 Hypo-osmolality and hyponatremia; E11.9 Type 2 diabetes mellitus without complications; E86.1 Hypovolemia; D63.8 Anemia in other chronic diseases classified elsewhere; E73.9 Lactose intolerance, unspecified; H54.7 Unspecified visual loss; I10 Essential (primary) hypertension; K58.9 Irritable bowel syndrome, unspecified; M19.90 Unspecified osteoarthritis, unspecified site; R26.9 Unspecified abnormalities of gait and mobility; Z87.891 Personal history of nicotine dependence; Z68.21 Body mass index [BMI] 21.0-21.9, adult; Z86.14 Personal history of Methicillin resistant Staphylococcus aureus infection; Z79.82 Long term (current) use of aspirin; Z79.84 Long term (current) use of oral hypoglycemic drugs; Z79.4 Long term (current) use of insulin; Z79.899 Other long term (current) drug therapy; Z82.49 Family history of ischemic heart disease and other diseases of the circulatory system; Y84.6 Urinary catheterization as the cause of abnormal reaction of the patient, or of later complication, without mention of misadventure at the time of the procedure
CPT/HCPCS: 36415; 36569; 71020; 73521; 76937; 77001; 80048; 80053; 80202; 80299; 81001; 83036; 83605; 85025; 87040; 87070; 87075; 87077; 87186; 87205; 87324; 93005; 94760; 96361; 96365; 96366; 99291

== ENCOUNTER 2017-01-06 10:01 | Emergency (ER) | payer MEDICARE, OTHER ==
[2017-01-06 10:18] VITALS: PULSE 138; RESP 10
--- NOTE | 2017-01-06 10:42 | ED ---
General Adult HPI - General Chief complaint: Cardiac Arrest/CPR Stated complaint: Cardiac Arrest Time Seen by Provider: 01/06/17 10:01 Source: EMS, RN notes reviewed Mode of arrival: EMS Limitations: altered mental status, physical limitation - History of Present Illness Initial comments: Patient is an 81-year-old female presenting to emergency department by EMS for cardiac arrest. Patient was at a detention. CPR was done there for approximately 30 minutes. Patient was last seen responsive a few minutes prior to being found unresponsive. Patient did have return of pulse for approximately 10 minutes prior to arrival. Patient then lost her pulse upon entering the building. Patient is unresponsive and offers no further history. - Related Data Home Medications Medication Instructions Recorded Confirmed Aspirin EC [Ecotrin Low Dose] 81 mg PO DAILY 09/17/16 12/30/16 Multivitamins, Thera [Multivitamin] 1 tab PO DAILY 09/17/16 12/30/16 Acetaminophen Tab [Tylenol] 500 mg PO Q6HR PRN 09/23/16 12/30/16 Ascorbic Acid [Vitamin C] 1,000 mg PO DAILY 09/23/16 12/30/16 metFORMIN HCL [Glucophage] 1,000 mg PO AC-BID 09/23/16 12/30/16 Repaglinide [Prandin] 1 mg PO AC-TID 10/22/16 12/30/16 Amino Acids/Protein Hydrolys 30 ml PO BID 11/11/16 12/30/16 [Pro-Stat Supplement] Furosemide [Lasix] 40 mg PO [id number] 11/27/16 12/30/16 Metoprolol Tartrate [Lopressor] 12.5 mg PO BID 11/27/16 12/30/16 Calcium Carbonate [Tums] 1,000 mg PO QID 12/09/16 12/30/16 Diphenoxylate HCl/Atropine 2 tab PO QID PRN 12/09/16 12/30/16 [Lomotil] Loratadine [Claritin] 10 mg PO DAILY 12/23/16 12/30/16 Vancomycin 1,000 mg IVPB RT-Q12H 12/30/16 12/30/16 Previous Rx's Medication Instructions Recorded Famotidine [Pepcid] 20 mg PO BID tab 09/20/16 Insulin Glargine [Lantus] 10 unit SQ HS vial 09/26/16 Linagliptin [Tradjenta] 5 mg PO DAILY tablet 09/26/16 Lisinopril [Zestril] 2.5 mg PO DAILY@1300 tab 09/26/16 INSULIN LISPRO (HumaLOG) [humaLOG] 0 unit SQ ACHS #1 vial 12/04/16 Loperamide [Imodium] 2 mg PO TID PRN #20 cap 12/04/16 Potassium Chloride ER [K-Dur 10] 10 meq PO MoWeFr@0900 tab.er.prt 12/04/16 Ampicillin-Sulbactam [Unasyn] 3 gm IVPB Q6HR #168 vial 12/05/16 Allergies Allergy/AdvReac Type Severity Reaction Status Date / Time caffeine AdvReac Unknown Verified 12/30/16 10:30 Review of Systems ROS Statement: Those systems with pertinent positive or pertinent negative responses have been documented in the HPI. ROS Other: All systems not noted in ROS Statement are negative. Limitations: ROS unobtainable due to patients medical condition Past Medical History Past Medical History: Heart Failure, Diabetes Mellitus, Hypertension, Osteoarthritis (OA) Additional Past Medical History / Comment(s): Pt stating, "No" to all when asked. but does have sinus/allergies, balance problems/admitted to multiple falls, poor vision stated needs new glasses they don't work anymore. uses a magnifying glass. Hay fever, lactose intolerance. IBS. Newly diagnosed diabetes 09/24,UTI, IDC,gastroenteritis,colitis,Nurse Shayla at [facility] pa A&O X3 , able to sign for self, is a 1 person asst transfer. History of Any Multi-Drug Resistant Organisms: MRSA Date of last positivie culture/infection: 11/28/16 MDRO Source:: coccyx Past Surgical History: Tonsillectomy Additional Past Surgical History / Comment(s): d&c 40 years ago Past Anesthesia/Blood Transfusion Reactions: Unable to Obtain Additional Past Anesthesia/Blood Transfusion Reaction / Comment(s): past blood transfuion after 1st child born. Past Psychological History: No Psychological Hx Reported Additional Psychological History / Comment(s): pt knew the year and month but 2 times during admission pt had to be reorientated as to place. pt stated she lives at [facility],uses a cane when up Smoking Status: Former smoker Past Alcohol Use History: None Reported Past Drug Use History: None Reported - Past Family History Mother Family Medical History: No Reported History Father Additional Family Medical History / Comment(s): heart problems, triple bypass. General Exam Limitations: altered mental status, physical limitation General appearance: obtunded Head exam: Present: atraumatic Eye exam: Present: other (Pupils are fixed and dilated) ENT exam: Present: other (Intubated) Neck exam: Present: normal inspection Respiratory exam: Present: other (No spontaneous breath sounds. Equal sounds with bagging insufflation.) Cardiovascular Exam: Present: other (No spontaneous heart sounds. No pulse.) GI/Abdominal exam: Present: soft, distended Extremities exam: Present: normal inspection Neurological exam: Present: other (Unresponsive) Psychiatric exam: Present: other (Unresponsive) Skin exam: Present: cyanosis, other (Wound VAC over decubitus ulcer) Course Vital Signs 01/06/17 01/06/17 10:03 10:18 Pulse Rate 138 H Respiratory 10 L 10 L Rate - Reevaluation(s) Reevaluation #1: 01/06/17 10:41 Case was discussed with son, Jean Andre. Patient underwent ACLS protocol in the emergency department. Patient did briefly have V. tach/V. fib and was shocked twice. Patient was provided magnesium and epinephrine and bicarb and amiodarone. At 10:34 AM patient still was unresponsive to pain. Pupils fixed and dilated. No spontaneous pulse. No spontaneous heart sounds. No spontaneous breath sounds. Time of is 1034. 01/06/17 10:47 Case was discussed in detail with Dr. Gaytan who is familiar with this patient and states he just saw her this morning. He states she had complained of some mild nausea and dry heaves. He states she has recently decided she did not want much further care and has been dealing with a bad decubitus ulcer. 01/06/17 10:49 Case also discussed with neuropsychology medical consultant Jesica who does okay release the body. Critical Care Time Critical Care Time: Yes Total Critical Care Time: 31 Disposition Clinical Impression: Cardiopulmonary arrest Disposition: Referrals: Darrel Gaytan DO [Primary Care Provider] - 1-2 days Preliminary Cause of : Cardiopulmonary arrest
[2017-01-06] MEDS ORDERED: MAGNESIUM SULFATE 500 MG/ML 20 ML VIAL ONE (12:36)
[2017-01-06] MEDS ORDERED: EPINEPHrine 10 ML SYRINGE (0.1 MG/ML) ONE (12:36)
[2017-01-06] MEDS ORDERED: SODIUM BICARB 8.4% 50 ML SYR (1 MEQ/ML) ONE (12:36)
[2017-01-06 16:36] LABS: Glucose,Whole Blood 89 mg/dL (75-99)
== END 2017-01-06 11:10 | disposition expired ==
LOC: EC 10:01
DX: I46.9 Cardiac arrest, cause unspecified (principal); M19.90 Unspecified osteoarthritis, unspecified site; E11.9 Type 2 diabetes mellitus without complications; I10 Essential (primary) hypertension; I50.9 Heart failure, unspecified; Z87.891 Personal history of nicotine dependence; Z79.4 Long term (current) use of insulin; Z79.899 Other long term (current) drug therapy; Z79.82 Long term (current) use of aspirin
CPT/HCPCS: 36415; 99291; J0171; J3475